=== PATIENT | female | born 1995 | race Caucasian/White ===

== ENCOUNTER 2017-07-30 23:14 | Emergency (ER) | payer SELFPAY | END 2017-07-31 03:51 | disposition home or self-care (01) | PROVIDERS: Emergency Provider Emergency Medicine; Visit Provider Emergency Medicine | DX: N93.0 Postcoital and contact bleeding (principal); R82.71 Bacteriuria; F17.210 Nicotine dependence, cigarettes, uncomplicated | CPT/HCPCS: 81001; 81025; 87077; 87086; 87210; 87220; 99283 ==

== ENCOUNTER → 2017-11-26 17:26 | Outpatient (REF) | payer SELFPAY ==
[2017-12-02 06:14] LABS: Neisseria gonorrhoeae, NAA Negative (Negative)
== END ==
LOC: LAB 17:26
PROVIDERS: Visit Provider Obstetrics & Gynecology
DX: Z01.419 Encounter for gynecological examination (general) (routine) without abnormal findings (principal)
CPT/HCPCS: 87491; 87591

== ENCOUNTER 2020-06-22 08:21 | Emergency (ER) | payer MEDICAID, SELFPAY ==
[2020-06-22 08:21] VITALS: BP 110/74; PULSE 88; RESP 16; TEMP 36.6; O2SAT 98; BMI 20.3
--- NOTE | 2020-06-22 08:40 | HMH.EDANIB ---
ED Disposition Clinical Impression: Cat bite Qualifiers: Encounter type: initial encounter Qualified Code(s): W55.01XA - Bitten by cat, initial encounter Disposition: Home, Self-Care Condition on Discharge: Good Instructions: Animal Bites Prescriptions: Amoxicillin/Potassium Clav [Augmentin 875-125 Tablet] 1 tab PO Q12H 10 Days #20 tab Prescription Printed Referrals: PCP,No [Non-Staff] - - Critical Care Critical Care Time: No Attestation: On , the high probability of a clinically significant, sudden or life threatening deterioration of the following system(s) required my full and direct attention, intervention and personal management. The time I documented below is in addition to time spent performing reported procedures but includes the following listed in this critical care notation. Medical Decision Making - Marcus Inquiry Pt receiving controlled substance: No Orders (Tests/Meds): ED MEDICATIONS Discontinued Medications Generic Name Dose Route Start Last Admin Trade Name Freq PRN Reason Stop Dose Admin Ibuprofen 600 mg 06/22/20 08:38 06/22/20 08:49 Ibuprofen 600 Mg Tablet PO 06/22/20 08:39 600 mg ONCE ONE Administration Tetanus/Reduced Diphtheria/Acell Pertussis 0.5 ml 06/22/20 08:38 06/22/20 08:53 Tet/Diphth/Pert-Adult 0.5ml Syringe IM 06/22/20 08:39 0.5 ml .ONCE ONE Administration ORDERS Category Date Time Status Hand XR right minimum 3 views [XR hand RT min 3V] Stat Exams 06/22/20 08:43 Ordered - Radiology Data #1 Image(s): Hand Image Reviewed: Yes I reviewed the patient's radiology image No foreign body identified in the thenar eminence and no other abnormalities. Medical Decision Narrative: 24-year-old female with a cat bite to the right arm and hand. These are her pets and they were two cats that were fighting. Patient has 1 bite over the thenar eminence and several scratches over the volar surface of the wrist and forearm. Tetanus updated x-ray ordered for foreign body and Augmentin given for prophylaxis. Patient's wounds were copiously irrigated with chlorhexidine. X-ray demonstrated no evidence of foreign body the patient was discharged home in good condition with appropriate return precautions. Animal Bite HPI - General Chief Complaint: Animal Bite Stated Complaint: ao @ 0815 lac to R hand Time Seen by Provider: 06/22/20 08:25 Mode of Arrival: Ambulatory Source of Information: Patient Limitations: No Limitations - History of Present Illness HPI narrative: 24-year-old female who presents within minutes after breaking up a fight between her cats with one of the cats attacking her arm with multiple bites and scratches over the hand and forearm. She is anxious and states that the pain is 4 out of 10 at this time. Denies numbness or weakness to the hand has some pain with opposition of the thumb. No shooting pain and no other trauma. MD complaint: animal bite Onset (ago): minute(s) Animal: cat Description of animal: household pet Mechanism: bite, scratch Location: other Right: forearm, hand Pain description: sharp, burning Severity scale (1-10): 4 Context: animals fighting Associated symptoms: none - Related Data Patient tetanus UTD: No (ordered) Previous Rx's Medication Instructions Recorded Amoxicillin/Potassium Clav 1 tab PO Q12H 10 Days #20 tab 06/22/20 [Augmentin 875-125 Tablet] Allergies Allergy/AdvReac Type Severity Reaction Status Date / Time No Known Allergies Allergy Verified 03/14/19 11:06 [facility] History - Hepatitis A Screen Attestation statement:: This patient has been screened for Hepatitis A risk factors. 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
--- NOTE | 2020-06-22 08:43 | XR_ITS ---
PROCEDURE: XR HAND RT MIN 3V CLINICAL INDICATION: Cat bite right thumb COMPARISON: No exams were available for comparison FINDINGS: No fracture or dislocation. No lytic or blastic change. There is normal mineralization. The joint spaces are well-preserved. No significant degenerative/arthritic changes. No erosive changes evident. Other findings:There may be mild soft tissue swelling between the 1st and 2nd metacarpals but there are no foreign bodies. There is no air within the soft tissues. IMPRESSION: Possible mild soft tissue swelling otherwise negative right hand Dictated by: Dr. Charles Santiago MD 06/22/2020 09:48 Dr. Charles Santiago MD in [place] 06/22/2020 09:48
--- NOTE | 2020-06-22 09:40 | PC.NURSE ---
WOUND CARE TO RT HAND POLYSPORIN APPLIED DSD APPLIED. INFORMATION FAXED TO HEALTH DEPT
[2020-06-22 09:43] VITALS: BP 115/74; PULSE 78; RESP 16; TEMP 36.6; O2SAT 98
== END 2020-06-22 09:46 | disposition home or self-care (01) ==
PROVIDERS: Emergency Provider Student in an Organized Health Care Education/Training Program; PCP Emergency Medicine
DX: S61.431A Puncture wound without foreign body of right hand, initial encounter (principal); W55.01XA Bitten by cat, initial encounter; Z23 Encounter for immunization
CPT/HCPCS: 73130; 90471; 90715; 99282

== ENCOUNTER 2020-08-06 00:53 | Observation (INO) | payer MEDICAID, SELFPAY ==
[2020-08-06] VITALS (16 sets, daily range): BP systolic 86–119; BP diastolic 43–73; PULSE 60–87; RESP 12–20; TEMP 36.3–36.9; O2SAT 95–100; BMI 20.7
--- NOTE | 2020-08-06 01:01 | CT_ITS ---
PROCEDURE: CT ABDOMEN PELVIS W CON CLINICAL INDICATION: n/v Generalized abdominal pain with nausea and vomiting COMPARISON: CT ABDPELWO CT abdomen pelvis wo con from 09/07/2018 TECHNIQUE: IV Contrast: 75ML Isovue 370 Oral Contrast None Axial images obtained with sagittal and coronal reformats. All CT scans at the facility use one or more dose reduction, viz: automated exposure control, ma/kV adjustment per patient size (including targeted exams where dose is matched to indication, i.e. head), or iterative reconstruction technique. FINDINGS: LOWER THORAX: No acute finding ABDOMEN & PELVIS: Periportal edema noted within the liver. The spleen, adrenal glands, pancreas, and kidneys have an unremarkable appearance. The appendix is not clearly delineated. There are fluid-filled loops of small bowel with a few air-fluid levels and some mild small bowel wall thickening in the mid and lower abdomen which may be related to enteritis. There is also some thickening of the ascending colon. No evidence free air. Multiple unopacified bowel loops in the abdomen or pelvis which could obscure or mimic pathology. If symptoms persist, consider repeat exam with IV and oral contrast. There is some minimal haziness of the pelvic fat nonspecific. No acute bony findings. IMPRESSION: Findings compatible with enterocolitis. Multiple unopacified bowel loops in the abdomen or pelvis which could obscure or mimic pathology. If symptoms persist, consider repeat exam with IV and oral contrast.. Dictated by: Robles Quigley MD 08/06/2020 06:11 Robles Quigley MD in [facility] 08/06/2020 06:11
--- NOTE | 2020-08-06 01:25 | HMH.EDNVD ---
ED Disposition Clinical Impression: Enterocolitis Disposition: Admitted as Observation Condition on Discharge: Fair Referrals: Adithya Pa MD [Primary Care Provider] - - Critical Care Critical Care Time: No Attestation: On 08/06/20, the high probability of a clinically significant, sudden or life threatening deterioration of the following system(s) required my full and direct attention, intervention and personal management. The time I documented below is in addition to time spent performing reported procedures but includes the following listed in this critical care notation. Medical Decision Making - Medical Records Medical records reviewed: Yes: I reviewed the patient's medical records. - Marcus Inquiry Pt receiving controlled substance: No Vital Signs: 08/06/20 01:11 Temperature 97.4 F L Temperature Source Temporal Artery Scan Respiratory Rate 15 Blood Pressure [Right Arm] 105/45 L Blood Pressure Mean [Right Arm] 65 Blood Pressure Source [Right Arm] Automatic Cuff Blood Pressure Position [Right Arm] Supine 02 Sat by Pulse Oximetry 100 Oxygen Delivery Method Room Air - Lab Data Lab results reviewed: Yes: I reviewed the patient's lab results. Lab Results 08/06/20 01:20: WBC 20.3 H*, RBC 4.81, Hgb 14.5, Hct 43.9, MCV 91.4, MCH 30.2, MCHC 33.1, RDW 13.6, Plt Count 157, MPV 9.1, Neut % (Auto) 84.6 H, Lymph % (Auto) 9.8 L, [place] % (Auto) 4.4, Eos % (Auto) 0.9, Baso % (Auto) 0.2, Neut # (Auto) 17.2 H, Lymph # (Auto) 2.0, [place] # (Auto) 0.9, Eos # (Auto) 0.2, Baso # (Auto) 0.0, Total Counted 100, Neutrophils % (Manual) 86 H, Band Neutrophils % 7.0, Lymphocytes % (Manual) 6 L, Monocytes % (Manual) 1 L, Platelet Estimate Normal, RBC Morphology Normal 08/06/20 01:20: Sodium 138, Potassium 3.5, Chloride 105, Carbon Dioxide 17 L, Anion Gap 19.5 H, BUN 13, Creatinine 0.80, Estimated Creat Clear 99, Estimated GFR 90, Est GFR ( Amer) 109, Glucose 192 H, Calcium 10.2, Total Bilirubin 0.8, Direct Bilirubin 0.0, Conjugated Bilirubin 0.0, Indirect Bilirubin 0.8, Unconjugated Bilirubin 0.8, AST 36, ALT 28, Alkaline Phosphatase 96, C-Reactive Protein 1.9, Total Protein 8.0, Albumin 4.9, Amylase 90, Lipase 52 08/06/20 01:20: ESR 16 08/06/20 01:20: Procalcitonin 0.058 08/06/20 01:20: Serum HCG, Qual Negative 08/06/20 01:50: Lactate 3.3 H 08/06/20 02:40: Urine Color Yellow, Urine Appearance Clear, Urine pH 7.0, Ur Specific [place] 1.020, Urine Protein Trace, Urine Glucose (UA) Negative, Urine Ketones 3+, Urine Blood Trace-i, Urine Nitrate Negative, Urine Bilirubin Negative, Urine Urobilinogen 0.2, Ur Leukocyte Esterase Negative, Urine RBC 3-5, Ur Squamous Epith Cells 20-50 Result diagrams: 08/06/20 01:20 08/06/20 01:20 Orders (Tests/Meds): ED MEDICATIONS Generic Name Dose Route Start Last Admin Trade Name Freq PRN Reason Stop Dose Admin Lactated Ringer's 1,000 mls @ 999 mls/hr 08/06/20 01:30 08/06/20 01:36 Lactated Ringer's 1000 Ml Bag IV 08/06/20 02:30 999 mls/hr .Q1H1M FAITH Administration Sodium Chloride 1,000 mls @ 999 mls/hr 08/06/20 04:45 08/06/20 04:33 Sod Chlor 0.9% 1000ml Bag IV 08/06/20 05:45 999 mls/hr .Q1H1M FAITH Administration Metronidazole 500 mg in 100 mls @ 100 mls/hr 08/06/20 04:37 08/06/20 04:40 Flagyl 500mg/100ml Ivpb IV 08/06/20 05:36 100 mls/hr ONCE ONE Administration Protocol Sodium Chloride 8 ml 08/06/20 01:17 Sodium Chloride 0.9% 10ml Vial IV 09/05/20 01:16 NEEDED PRN dilute pepcid Discontinued Medications Generic Name Dose Route Start Last Admin Trade Name Freq PRN Reason Stop Dose Admin Famotidine 20 mg 08/06/20 01:17 08/06/20 01:36 Famotidine 20mg/2ml Vial IV 08/06/20 01:18 20 mg ONCE ONE Administration Iopamidol 75 ml 08/06/20 02:37 08/06/20 02:37 Iopamidol-370 (76%);100ml Bottle IV 08/06/20 02:38 75 ml ONCE ONE Administration Methylprednisolone Sodium Succinate 125 mg 08/06/20 03:06 08/06/20 03
[2020-08-06 01:28] LABS: Basophils % 0.2 % (0.1-2.0); Eosinophils # 0.2 K/mm3 (0.0-0.4); Eosinophils % 0.9 % (0.1-12.0); Hematocrit 43.9 % (37.0-47.0); Hemoglobin 14.5 g/dL (12.2-16.2); Lymphocytes % 9.8 % (10-50); Mean Corpuscular HGB Conc 33.1 g/dL (31.8-35.4); Mean Corpuscular Hemoglobin 30.2 pg (27.0-31.2); Mean Corpuscular Volume 91.4 fl (81-99); Mean Platelet Volume 9.1 fl (7.4-10.4); Monocytes # 0.9 K/mm3 (0.1-1.0); Monocytes % 4.4 % (1.7-9.3); Neutrophils # 17.2 K/mm3 (1.8-7.8); Neutrophils % 84.6 % (37.0-80.0); Platelet Count 157 K/mm3 (142-424); Red Blood Count 4.81 M/mm3 (4.20-5.40); Red Cell Distribution Width 13.6 % (11.5-17.5)
[2020-08-06 01:31] LABS: White Blood Count 20.3 K/mm3 (4.8-10.8)
[2020-08-06 01:33] LABS: MANUAL DIFFERENTIAL MANUAL DIFFERENTIAL (MANUAL DIFF)
[2020-08-06 01:40] LABS: Chloride 105 mmol/L (98-107); Sodium 138 mmol/L (136-145)
[2020-08-06 01:41] LABS: Potassium 3.5 mmoL/L (3.5-5.1)
[2020-08-06 01:43] LABS: Alanine Aminotransferase 28 U/L (12-78); Amylase 90 U/L (30-110); Anion Gap 19.5 mEq/L (5-15); Aspartate Amino Transferase 36 U/L (14-36); Bilirubin,Unconjugated 0.8 mg/dL (0.0-1.1); Blood Urea Nitrogen 13 mg/dl (7-17); Carbon Dioxide 17 mmol/L (22.0-30.0); Creatinine Clearance Estimated 99 mL/min (50-200); Estimated Glomerular Filt Rate 90 ml/min (>60); GFR (African American) 109 ML/MIN (>60)
[2020-08-06 01:44] LABS: Albumin Level 4.9 g/dl (3.5-5.0); Alkaline Phosphatase 96 U/L (38-126); Bilirubin,Indirect 0.8 mg/dL (0.0-0.9); Bilirubin,Total 0.8 mg/dl (0.2-1.3); Calcium 10.2 mg/dl (8.4-10.2); Glucose 192 mg/dl (74-100); Lipase 52 U/L (23-300)
[2020-08-06 01:49] LABS: C-Reactive Protein 1.9 mg/L (0-4)
[2020-08-06 01:57] LABS: HCG Qualitative, Serum Negative (Negative)
[2020-08-06 02:01] LABS: Lymphocytes % 6 % (10-50); Monocytes % 1 % (2-9); Neutrophils % 86 % (42-76); Platelet Estimate Normal; Procalcitonin 0.058 ng/mL (0.0-2.0); RBC Morphology Normal; Total Cells Counted 100
[2020-08-06 02:15] LABS: Erythrocyte Sedimentation Rate 16 mm/hr (0-20)
--- NOTE | 2020-08-06 02:43 | PC.NURSE ---
pt ambulated independently to the bathroom. no pain reported at this time
[2020-08-06 02:47] LABS: Microscopic, Urine URINE MICROSCOPIC (MICROSCOPIC)
[2020-08-06 02:48] LABS: Appearance,Urine CLEAR (Clear); Bilirubin,Urine Negative (Negative); Blood, Urine TRACE-I (Negative); Color,Urine YELLOW (Yellow); Glucose,Urine (UA) Negative (Negative); Ketones,Urine 3+ (Negative); Leukocyte Esterase,Urine Negative (Negative); Nitrate,Urine Negative (Negative); Protein,Urine TRACE (Negative); Urobilinogen,Urine 0.2 EU/dl (0.2)
[2020-08-06 02:54] LABS: Squamous Epithelial Cell,Urine 20-50 #/hpf (0-5)
--- NOTE | 2020-08-06 03:45 | PC.NURSE ---
PT RESTING QUIETLY IN BED. ROUSES EASILY. VERBALIZES UNDERSTANDING OF ADMISSION STATUS AND CONSULT TO GI THIS MORNING. NO COMPLAINTS OR NEEDS OFFERED. VSS. EMV 15. IVF'S CONTINUED.
[2020-08-06 03:57] LABS: Lactic Acid 3.3 mmol/L (0.7-2.1)
[2020-08-06 04:39] LABS: Reflex Lactic Add Lactic Reflex
--- NOTE | 2020-08-06 04:45 | PC.NURSE ---
PT REMAINS RESTING QUIETLY. NO ACUTE DISTRESS NOTED. NO NEEDS VOICED. TURNS AND REPOSITIONS INDEPENDENTLY.
--- NOTE | 2020-08-06 05:45 | PC.NURSE ---
pt up to bathroom, ambulating independently. ivf's infusing, currently watching tv at this time.
[2020-08-06 05:51] LABS: Lactic Acid Follow Up (RFLX 1) 1.1 mmol/L (0.7-2.1)
--- NOTE | 2020-08-06 06:47 | PC.NURSE ---
continues to watch tv at this time. vss. no distress.
[2020-08-06 07:23] LABS: Basophils % 0.1 % (0.1-2.0); Eosinophils % 0.1 % (0.1-12.0); Hematocrit 38.6 % (37.0-47.0); Lymphocytes # 0.5 K/mm3 (0.7-4.5); Lymphocytes % 2.4 % (10-50); Mean Corpuscular HGB Conc 33.2 g/dL (31.8-35.4); Mean Corpuscular Hemoglobin 30.6 pg (27.0-31.2); Mean Corpuscular Volume 92.3 fl (81-99); Mean Platelet Volume 9.2 fl (7.4-10.4); Monocytes # 0.4 K/mm3 (0.1-1.0); Monocytes % 2.3 % (1.7-9.3); Neutrophils # 18.3 K/mm3 (1.8-7.8); Neutrophils % 95.2 % (37.0-80.0); Platelet Count 99 K/mm3 (142-424); Red Blood Count 4.18 M/mm3 (4.20-5.40); Red Cell Distribution Width 13.6 % (11.5-17.5); White Blood Count 19.2 K/mm3 (4.8-10.8)
--- NOTE | 2020-08-06 07:34 | PC.NURSE ---
Report from CYRIL Sweeney. No needs at this time
[2020-08-06 07:39] LABS: Alanine Aminotransferase 13 U/L (12-78); Albumin Level 3.5 g/dl (3.5-5.0); Albumin/Globulin Ratio 1.3 (1.1-1.8); Alkaline Phosphatase 57 U/L (38-126); Anion Gap 8.2 mEq/L (5-15); Aspartate Amino Transferase 24 U/L (14-36); Bilirubin,Total 0.7 mg/dl (0.2-1.3); Blood Urea Nitrogen 8 mg/dl (7-17); Carbon Dioxide 23 mmol/L (22.0-30.0); Chloride 110 mmol/L (98-107); Creatinine Clearance Estimated 113 mL/min (50-200); Estimated Glomerular Filt Rate 105 ml/min (>60); GFR (African American) 127 ML/MIN (>60); Globulin 2.6 g/dL (1.3-3.2); Glucose 111 mg/dl (74-100); Potassium 4.2 mmoL/L (3.5-5.1); Sodium 137 mmol/L (136-145); Total Protein,Serum 6.1 g/dl (6.3-8.2)
[2020-08-06 07:54] LABS: Hemoglobin 12.9 g/dL (12.2-16.2)
--- NOTE | 2020-08-06 08:11 | PC.NURSE ---
Pt sleeping, no complaints at this time
--- NOTE | 2020-08-06 10:03 | PC.NURSE ---
Called pre-op and spoke with Bret. Asked her to have call Dr. Pa in the ED for a consult. She advised she would let him know.
--- NOTE | 2020-08-06 10:10 | PC.NURSE ---
speaking with Dr. Guerrero
--- NOTE | 2020-08-06 10:12 | PC.NURSE ---
Dr. Guerrero advises he is going to scope the patient and requests bottle of mag citrate at this time.
--- NOTE | 2020-08-06 10:47 | PC.NURSE ---
Scope packet completed. Pre-op checklist completed. Pt clothing and jewelry removed.
[2020-08-06 11:20] LABS: Coronavirus 19 IgG Antibody Negative (Negative); Coronavirus 19 IgM Antibody Negative (Negative)
--- NOTE | 2020-08-06 11:27 | PC.NURSE ---
Called report to Sulam, vivien on the floor
--- NOTE | 2020-08-06 13:36 | PC.NURSE ---
Pt sitting in bed watching TV. No needs at this time
--- NOTE | 2020-08-06 14:11 | HMH.PHAVTE ---
[facility] Pharmacy VTE Monitoring - Patient Demographics Admission date: 08/06/20 Report Date: 08/06/20 Time: 14:11 Allergies/Adverse Reactions: Patient Allergies No Known Allergies Allergy (Verified 03/14/19 11:06) Height: 1.65 m Weight: 56.699 kg Patient Problems: Current Active Problems Enterocolitis (Acute) - VTE Risk Labs: VTE Related Lab Results Hgb 12.9 g/dL (12.2-16.2) D 08/06/20 07:09 Hct 38.6 % (37.0-47.0) 08/06/20 07:09 Plt Count 99 K/mm3 (142-424) L D 08/06/20 07:09 BUN 8 mg/dl (7-17) D 08/06/20 07:09 Creatinine 0.70 mg/dl (0.52-1.04) 08/06/20 07:09 Estimated Creat Clear 113 mL/min (50-200) 08/06/20 07:09 Clinical Trial Participant: No - Prophylaxis VTE Prophylaxis Ordered?: Yes Types of VTE Prophylaxis: TEDS Knee High
--- NOTE | 2020-08-06 15:20 | HMH.ANESCL ---
[facility] Anesthesia Checklist - Patient Identification Patient Identification: Arm Band - Structural Data Admitted From: Inpatient Planned Operative Procedure/s: colonoscopy Consent for Planned Operative Procedure(s) Verified: Yes Verified Documents: Surgical Consent, History and Physical - NPO Status Verified Time NPO: 00:00 - Additional verifications Anesthesia Reactions: No - Airway Assessment C-Spine Mobility Assessed: Yes (mp2) TMJ Mobility Assessed: Yes Dentition: Good Dentition - Neurological Assessment Level of Consciousness: Awake, Alert - Anesthesia Plan Anesthesia Risk discussed: Yes Anesthesia Plan: Verified ASA Class: II Anesthesia Type: MAC [facility] History I have reviewed the patient's past medical history: Yes *Have you ever received a pneumonia vaccine?: No *Have you received a flu vaccine this season?: No Anesthesia experience/problems:: nac Amputation: No Fractures: No - *Social History Last grade of school completed: High school graduate Smoking Status: Current every day smoker # Packs/Day (cigarettes): 1 Alcohol Intake: never Substance Use Type: denies use *Occupational Status:: employed Housing: house Household Members: spouse *Travel in the last 8 weeks: None Family Hx:: Coronary Artery Disease, Diabetes 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
--- NOTE | 2020-08-06 16:00 | HMH.HPDC ---
General - General Admission date:: 08/06/20 Discharge date: 08/06/20 *Admission Date: 08/06/20 *Chief complaint: abd pain *History of present illness: 24 yr old female pt presents with complaints low abd pain that came on suddenly while at work presented to ed. Pt states she went to work this evening, ate normal foods, and became acutely nauseated, feels like her low belly is being stabbed and denies radiation of the pain anywhere else. Patient admitted for GI consult. [facility] History I have reviewed the patient's past medical history: Yes *Have you ever received a pneumonia vaccine?: No *Have you received a flu vaccine this season?: No Anesthesia experience/problems:: nac Amputation: No Fractures: No - *Social History Last grade of school completed: High school graduate Smoking Status: Current every day smoker # Packs/Day (cigarettes): 1 Alcohol Intake: never Substance Use Type: denies use *Occupational Status:: employed Housing: house Household Members: spouse *Travel in the last 8 weeks: None Family Hx:: Coronary Artery Disease, Diabetes 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 History Review of Systems - Review of Systems Review of systems:: pertinent systems reviewed and negative unless documented below - Constitutional Denies body ache(s), Denies fever(s), Denies increased appetite - Eyes Denies blurry vision - ENT Denies bleeding gums, Denies pain with swallowing - *Cardiovascular Denies chest pain at rest - *Respiratory Denies chest congestion - *Gastrointestinal Reports abdominal pain, Reports cramping - *Genitourinary Denies painful urination - *Musculoskeletal Denies joint pain - Integumentary/Breasts Denies rash - *Neurologic Denies abnormal movements, Denies headache(s), Denies seizure-like activity - Psychiatric Denies lack of enjoyment - Endocrine Denies flushing - Hematologic/Lymphatic Denies easy bruising - Allergic/Immunologic Denies GI upset with certain foods Exam Vital signs and Labs for Last 24 Hours: Temp Pulse Resp BP Pulse Ox 97.7 F 60 16 95/43 L 95 08/06/20 15:50 08/06/20 15:50 08/06/20 15:50 08/06/20 15:50 08/06/20 15:50 Laboratory Results - last 24 hr 08/06/20 01:20: WBC 20.3 H*, RBC 4.81, Hgb 14.5, Hct 43.9, MCV 91.4, MCH 30.2, MCHC 33.1, RDW 13.6, Plt Count 157, MPV 9.1, Neut % (Auto) 84.6 H, Lymph % (Auto) 9.8 L, [place] % (Auto) 4.4, Eos % (Auto) 0.9, Baso % (Auto) 0.2, Neut # (Auto) 17.2 H, Lymph # (Auto) 2.0, [place] # (Auto) 0.9, Eos # (Auto) 0.2, Baso # (Auto) 0.0, Total Counted 100, Neutrophils % (Manual) 86 H, Band Neutrophils % 7.0, Lymphocytes % (Manual) 6 L, Monocytes % (Manual) 1 L, Platelet Estimate Normal, RBC Morphology Normal 08/06/20 01:20: Sodium 138, Potassium 3.5, Chloride 105, Carbon Dioxide 17 L, Anion Gap 19.5 H, BUN 13, Creatinine 0.80, Estimated Creat Clear 99, Estimated GFR 90, Est GFR ( Amer) 109, Glucose 192 H, Calcium 10.2, Total Bilirubin 0.8, Direct Bilirubin 0.0, Conjugated Bilirubin 0.0, Indirect Bilirubin 0.8, Unconjugated Bilirubin 0.8, AST 36, ALT 28, Alkaline Phosphatase 96, C-Reactive Protein 1.9, Total Protein 8.0, Albumin 4.9, Amylase 90, Lipase 52 08/06/20 01:20: ESR 16 08/06/20 01:20: Procalcitonin 0.058 08/06/20 01:20: Serum HCG, Qual Negative 08/06/20 01:50: Lactate 3.3 H 08/06/20 02:40: Urine Color Yellow, Urine Appearance Clear, Urine pH 7.0, Ur Specific [place] 1.020, Urine Protein Trace, Urine Glucose (UA) Negative, Urine Ketones 3+, Urine Blood Trace-i, Urine Nitrate Negative, Urine Bilirubin Negative, Urine Urobilinogen 0.2, Ur Leukocyte Esterase Negative, Urine RBC 3-5, Ur Squamous Epith Cells 20-50 08/06/20 05:30: Lactate 1.1 08/06/20 07:09: WBC 19.2 H, RBC 4.18 L, Hgb 12.9 D, Hct 38.6, MCV 92.3, MCH 30.6, MCHC 33.2, RDW 13.6, Plt Count 99 L D, MPV 9.2, Neut % (Auto) 95.2 H, Lymph % (Auto) 2.4 L, [place] % (Auto) 2.3, Eos % (Auto) 0.1, Baso % (Auto) 0.1, Neut # (Auto) 18.3 H, Lymph # (Auto) 0.5 L, [place] #
--- NOTE | 2020-08-06 16:25 | HMH.PROC ---
[facility] Procedure Note Procedure Note:: Colonoscopy Procedure Report: Colonoscopy with cold biopsies Endoscopist: Carloz Guerrero II, MD Referring physician: Adithya Pa MD Date of Procedure: August 06, 2020 Equipment: Olympus 180 variable stiffness pediatric colonoscope Sedation: MAC sedation Indication: Ms. Perez is a 24-year-old female who developed more significant abdominal pain yesterday at work (3[employer]). This did progressively worsen and she developed some nausea. She does have some mild chronic constipation. Yesterday, she did not have any associated diarrhea, rectal bleeding or mucus. She has had no recent weight loss. She reports no family history of colitis, Crohn's disease or colon cancer. The patient reports not eating anything that had an unusual taste. She has had no fever or vomiting. She did go to the emergency department and a CAT scan showed fluid-filled loops of small bowel with a few air-fluid levels and some mild small bowel wall thickening in the mid and lower abdomen. The patient's lab work did initially show leukocytosis and her WBC count today was 19.2. She had normal hemoglobin 12.9 and hematocrit 38.6 after hydration. Procedure: Prior to the procedure, a history and physical exam was performed, and patient's medications and allergies were reviewed. The risks, benefits and alternatives of the sedation and procedure were discussed with the patient. All questions were answered and informed consent was obtained. The patient was brought to the procedure room. Patient identification and proposed procedure were verified by the physician and the nurse. The patient was placed in a left lateral decubitus position and the scope was passed under direct vision. Throughout the procedure, the patient's blood pressure, pulse, and oxygen saturations were monitored continuously. The colonoscopy was accomplished without difficulty. The patient tolerated the procedure well. Findings: On digital rectal examination there was normal rectal tone. There were no external hemorrhoids. The colonoscope was introduced through the anal canal to the rectum and advanced to the cecum. The ileocecal valve and appendiceal orifice were identified. The scope was advanced a short distance into the ileum which appeared grossly normal. The scope was then withdrawn into the colon. The cecum, ascending, transverse, descending, sigmoid and rectum were grossly normal. There was very mild haustral edema of the sigmoid colon so this was biopsied to rule out any self-limited colitis. There were no other mucosal abnormalities identified. Upon retroflexion within the rectum there were small grade 1 internal hemorrhoids.the preparation was excellent throughout. Impression: 1. Normal colonoscopy with intubation of the terminal ileum Plan: I do feel that the patient likely did have a gastroenteritis (more so than enterocolitis). If she does develop diarrhea I would consider doing PCR gastrointestinal panel to rule out any microbial pathogens. Presently, I would recommend advancing towards low residue diet and dicyclomine as needed. I would also consider probiotic (align).
== END 2020-08-06 18:15 | disposition home or self-care (01) ==
LOC: ER 04:43 → 2ND 04:47
PROVIDERS: Internal Medicine Gastroenterology; Admitting Provider Emergency Medicine; Emergency Provider Emergency Medicine; PCP Emergency Medicine; Visit Provider Emergency Medicine
PROC: 0DJD8ZZ Inspection of Lower Intestinal Tract, Via Natural or Artificial Opening Endoscopic (ICD-10-PCS; CPT 45378; principal; 2020-08-06 15:30)
DX: K52.9 Noninfective gastroenteritis and colitis, unspecified (principal); Z72.0 Tobacco use; K59.00 Constipation, unspecified
CPT/HCPCS: 45378; 36415; 74177; 80048; 80053; 80076; 81001; 82150; 83605; 83690; 84145; 84703; 85007; 85025; 85651; 86140; 86328; 88305; 96365; 96366; 96367; 96375; 99284; G0378; J2405; Q9967

== ENCOUNTER 2022-03-03 17:14 | Emergency (ER) | payer MEDICAID, SELFPAY ==
[2022-03-03 17:30] VITALS: BP 106/74; PULSE 82; RESP 17; TEMP 36.9; O2SAT 98; BMI 18.6
--- NOTE | 2022-03-03 17:35 | XR_ITS ---
PROCEDURE INFORMATION: Exam: XR Right Hand Exam date and time: 03/03/2022 5:35 PM Age: 26 years old Clinical indication: Injury or trauma; Other: Punched a wall; Blunt trauma (contusions or hematomas); Hand; Right TECHNIQUE: Imaging protocol: Radiologic exam of the Right hand. Views: 3 or more views. COMPARISON: CR XR HAND RT MIN 3V 06/22/2020 9:02 AM FINDINGS: Bones/joints: Cortical irregularity of the base of the 5th metacarpal bone, concerning for fracture, likely involving articular cortex at the 5th carpal-metacarpal joint, and there is cortical offset along the lateral/radial aspect of the proximal metaphyseal cortex. However, this is only well seen on AP image 1. Bones otherwise appear intact and normally aligned with normal mineralization.There are no lytic skeletal lesions seen. No significant arthritic deformities. Soft tissues: Medial/ulnar soft tissue swelling in the hand.No radiopaque foreign bodies. No pathologic soft tissue calcification. IMPRESSION: Suspect acute intra-articular fracture of the base of the 5th metacarpal bone.
--- NOTE | 2022-03-03 17:54 | HMH.EDUTC ---
[facility] Clinical Impression: Metacarpal bone fracture Qualifiers: Encounter type: initial encounter Metacarpal bone: fifth Fracture type: closed Metacarpal location: base Fracture alignment: nondisplaced Laterality: right Qualified Code(s): S62.346A - Nondisplaced fracture of base of fifth metacarpal bone, right hand, initial encounter for closed fracture Disposition: Home, Self-Care Condition on Discharge: Good Instructions: Contusion, DI for Contusion Additional Instructions: *RICE, Rest the extremity, Ice 15-20 minutes 3-4 times daily, Compress- wear the malachi wrap as discussed as much as possible to help reduce swelling and pain, Elevate the extremity when at rest *Malachi wrap is for support and help control swelling, use it except in the shower. Be sure that is not to tight but not to loose either *Elevate when resting *Ibuprofen every 6-8 hours as needed for pain an inflammation. If need something more can take Tylenol in between doses of Ibuprofen to help Immediately follow up with your family doctor for new or worsening of symptoms, or no noticeable improvement over the next 3-5 days You may call back later this evening for the official reading of your xray Make sure to call Orthopedics/[facility] for appointment Straight To ER if any life threatening symptoms Referrals: Adithya Pa MD [Primary Care Provider] - As needed Don Palomo MD [Referring] - (call tomorrow for appointment) Time of Disposition: 18:24 Medical Decision Making - Marcus Inquiry Pt receiving controlled substance: No Marcus was queried for this patient: No Vital Signs: 03/03/22 17:30 03/03/22 18:11 Temperature 98.5 F 98.5 F Temperature Source Oral Pulse Rate 82 Pulse Rate [Left Brachial] 82 Respiratory Rate 17 17 Blood Pressure 106/74 L Blood Pressure [Left Arm] 106/74 L Blood Pressure Mean [Left Arm] 84 Blood Pressure Source [Left Arm] Automatic Cuff Blood Pressure Position [Left Arm] Sitting 02 Sat by Pulse Oximetry 98 Oxygen Delivery Method Room Air - Radiology Data #1 Image(s): Hand Image Reviewed: Yes I have reviewed radiologist's interpretation IMPRESSION: Suspect acute intra-articular fracture of the base of the 5th metacarpal bone. - Physician Consults Physician Consulted: Dr Chery Time: 18:49 Reason -: Orthopedic Eval/Care Comment/Response: Spoke with Dr Chery about xray and finding and he advise to place in Ulnar gutter splint and follow up with [facility] may call tomorrow for appointment [facility] - General Stated complaint: AO [id number]@[id number] injured R hand Time Seen by Provider: 03/03/22 17:54 Mode of Arrival: Ambulatory Source of Information: Patient Limitations: No Limitations Description of Symptoms (Recalled from Triage Doc. by RN): PATIENT C/O INJURY TO RIGHT HAND AFTER PUNCHING A WALL ON THURSDAY HEENT Symptoms (Recalled from RN notes): No Resp Symptoms (Recalled from RN notes): No Skin Symptoms (Recalled from RN notes): No MS Symptoms (Recalled from RN notes): Yes Functional Status (Recalled from RN notes): WNL - History of Present Illness Provider Complaint: Patient states that she got mad on Thursday and punched a wall State that she has been having pain and bruising in her hand ever since States that she is able to move and bend her fingers but the bruising has continued to get worse so she came in to get it checked - Related Data Home Medications Medication Instructions Recorded Confirmed No Known Home Medications 08/06/20 08/06/20 Previous Rx's Medication Instructions Recorded Dicyclomine HCl [Bentyl 10mg 10 mg PO TID #10 cap 08/06/20 capsule] metroNIDAZOLE [Flagyl 500mg 500 mg PO TID 7 Days #21 tab 08/06/20 Tablet] Allergies Allergy/AdvReac Type Severity Reaction Status Date / Time No Known Allergies Allergy Verified 03/14/19 11:06 - Worker's Comp Is this a Worker's Comp case?: No [facility] History - Hepatitis A Screen Attestatio
[2022-03-03 18:11] VITALS: BP 106/74; PULSE 82; RESP 17; TEMP 36.9; O2SAT 98
== END 2022-03-03 18:29 | disposition home or self-care (01) ==
PROVIDERS: Emergency Provider Nurse Practitioner; PCP Emergency Medicine
DX: S62.346A Nondisplaced fracture of base of fifth metacarpal bone, right hand, initial encounter for closed fracture (principal); W22.8XXA Striking against or struck by other objects, initial encounter
CPT/HCPCS: 29126; 73130; 99212; G0463

== ENCOUNTER → 2022-04-02 14:42 | Outpatient (CLI) | payer MEDICAID, SELFPAY ==
--- NOTE | 2022-04-02 14:45 | XR_ITS ---
FINAL REPORT CLINICAL HISTORY: hand pain COMPARISON: March 03, 2022 FINDINGS: LEFT HAND 3 views of the left hand were obtained. There has been interval improvement in the appearance of the proximal 5th metacarpal likely representing interval healing of a fracture. There is no new bony abnormality. Visualized joint spaces are normally aligned. Soft tissues are unremarkable. IMPRESSION: Findings likely represent interval healing of a fracture of the proximal 5th metacarpal. Reviewed, Interpreted and Dictated by Damien Grant III, MD Transcribed by Rama Guerrero Authenticated and [facility]
[2022-04-02 16:39] LABS: INR 1.01 (0.9-1.1); Prothrombin Time 11.4 seconds (10.1-12.5)
[2022-04-02 17:22] LABS: Basophils # 0.1 K/mm3 (0-0.2); Eosinophils # 0.2 K/mm3 (0.0-0.4); Eosinophils % 1.7 % (0.1-12.0); Hematocrit 48.1 % (37.0-47.0); Hemoglobin 14.9 g/dL (12.2-16.2); Lymphocytes # 2.6 K/mm3 (0.7-4.5); Lymphocytes % 25.6 % (10-50); Mean Corpuscular HGB Conc 31.1 g/dL (31.8-35.4); Mean Corpuscular Hemoglobin 30.2 pg (27.0-31.2); Mean Corpuscular Volume 97.4 fl (81-99); Mean Platelet Volume 10.3 fl (7.4-10.4); Monocytes # 0.7 K/mm3 (0.1-1.0); Monocytes % 6.7 % (1.7-9.3); Neutrophils # 6.6 K/mm3 (1.8-7.8); Platelet Count 196 K/mm3 (142-424); Red Blood Count 4.94 M/mm3 (4.20-5.40); Red Cell Distribution Width 13.3 % (11.5-17.5); White Blood Count 10.2 K/mm3 (4.8-10.8)
[2022-04-02 17:44] LABS: Alanine Aminotransferase 15 U/L (12-78); Albumin Level 4.4 g/dl (3.5-5.0); Albumin/Globulin Ratio 1.5 (1.1-1.8); Alkaline Phosphatase 90 U/L (38-126); Anion Gap 10.2 mEq/L (5-15); Aspartate Amino Transferase 31 U/L (14-36); Blood Urea Nitrogen 10 mg/dl (7-17); Calcium 9.7 mg/dl (8.4-10.2); Carbon Dioxide 30 mmol/L (22.0-30.0); Chloride 106 mmol/L (98-107); Estimated Glomerular Filt Rate 77 ml/min (>60); GFR (African American) 93 ML/MIN (>60); Glucose 85 mg/dl (74-100); Potassium 5.2 mmoL/L (3.5-5.1); Sodium 141 mmol/L (136-145); Total Protein,Serum 7.4 g/dl (6.3-8.2)
[2022-04-02 18:15] LABS: Bilirubin,Total < 0.1 mg/dl (0.2-1.3)
[2022-04-04 09:25] LABS: HIV Screen 4th Generation wRfx Non Reactive (Non Reactive); Hepatitis B Surface Antigen Negative (Negative); Hepatitis C Antibody <0.1 s/co ratio (0.0-0.9)
[2022-04-04 12:22] LABS: Hep A Ab, Total Positive (Negative); Hep B Core Ab, Total Negative (Negative); Hep B Surface Ab, Qual Non Reactive (.)
[2022-04-08 00:12] LABS: ALT (SGPT) P5P 15 IU/L (0-40); Alpha 2-Macroglobulins, Qn 274 mg/dL (110-276); Apolipoprotein A-1 170 mg/dL (116-209); Bilirubin, Total 0.2 mg/dL (0.0-1.2); Fibrosis Score 0.05 (0.00-0.21); GGT 11 IU/L (0-60); Haptoglobin 109 mg/dL (33-278); Necroinflammat Activity Grade A0-No activity (.); Necroinflammat Activity Score 0.03 (0.00-0.17)
== END ==
PROVIDERS: PCP Emergency Medicine; Visit Provider Emergency Medicine
DX: M79.641 Pain in right hand (principal); K52.9 Noninfective gastroenteritis and colitis, unspecified; R53.83 Other fatigue; R35.0 Frequency of micturition; Z01.84 Encounter for antibody response examination; Z11.4 Encounter for screening for human immunodeficiency virus [HIV]
CPT/HCPCS: 36415; 73130; 80053; 81596; 85025; 85610; 86703; 86704; 86706; 86708; 87086; 87088; 87186; 87340; 87380; 87522; G0432

== ENCOUNTER → 2022-07-11 11:19 | Outpatient (CLI) | payer MEDICAID, SELFPAY ==
[2022-07-12 11:26] LABS: HIV Screen 4th Generation wRfx Non Reactive (Non Reactive); Rapid Plasma Reagin Ab Titer Non Reactive (NonRea<1:1)
[2022-07-19 22:49] LABS: Hep A Ab, IgM NEGATIVE; Hepatitis B Core Antibody IgM NEGATIVE; Hepatitis B Surface Antigen NEGATIVE; Hepatitis C Antibody 0.1
== END ==
PROVIDERS: PCP Emergency Medicine; Visit Provider Obstetrics & Gynecology
DX: Z30.017 Encounter for initial prescription of implantable subdermal contraceptive (principal)
CPT/HCPCS: 36415; 80074; 86592; 86703; G0432

== ENCOUNTER → 2022-08-01 12:32 | Outpatient (CLI) | payer MEDICAID, SELFPAY ==
[2022-08-01 13:48] LABS: Hemoglobin A1C 5.4 % (4.0-6.0)
[2022-08-01 14:39] LABS: Basophils # 0.1 K/mm3 (0-0.2); Basophils % 0.9 % (0.1-2.0); Eosinophils # 0.2 K/mm3 (0.0-0.4); Eosinophils % 2.4 % (0.1-12.0); Hematocrit 43.4 % (37.0-47.0); Hemoglobin 14.5 g/dL (12.2-16.2); Lymphocytes # 1.7 K/mm3 (0.7-4.5); Lymphocytes % 27.9 % (10-50); Mean Corpuscular HGB Conc 33.4 g/dL (31.8-35.4); Mean Corpuscular Hemoglobin 31.2 pg (27.0-31.2); Mean Corpuscular Volume 93.3 fl (81-99); Mean Platelet Volume 9.7 fl (7.4-10.4); Monocytes # 0.4 K/mm3 (0.1-1.0); Monocytes % 6.5 % (1.7-9.3); Neutrophils # 3.9 K/mm3 (1.8-7.8); Neutrophils % 62.3 % (37.0-80.0); Platelet Count 155 K/mm3 (142-424); Red Blood Count 4.66 M/mm3 (4.20-5.40); Red Cell Distribution Width 13.2 % (11.5-17.5); White Blood Count 6.2 K/mm3 (4.8-10.8)
[2022-08-01 17:36] LABS: Alanine Aminotransferase 24 U/L (12-78); Albumin Level 4.4 g/dl (3.5-5.0); Albumin/Globulin Ratio 1.5 (1.1-1.8); Alkaline Phosphatase 74 U/L (38-126); Aspartate Amino Transferase 34 U/L (14-36); Bilirubin,Total 0.6 mg/dl (0.2-1.3); Blood Urea Nitrogen 18 mg/dl (7-17); Carbon Dioxide 21 mmol/L (22.0-30.0); Chloride 109 mmol/L (98-107); Chol/HDL Ratio 2.5 (1-3.5); Cholesterol 199 mg/dl (140-200); Estimated Glomerular Filt Rate 77 ml/min (>60); GFR (African American) 93 ML/MIN (>60); Globulin 2.9 g/dL (1.3-3.2); Glucose 88 mg/dl (74-100); HDL Cholesterol 80 mg/dl (40-60); Sodium 138 mmol/L (136-145); Total Protein,Serum 7.3 g/dl (6.3-8.2); Triglycerides 95 mg/dl (30-150); VLDL Cholesterol 19 mg/dL (0-40)
[2022-08-01 17:46] LABS: Direct LDL Cholesterol 82.92 mg/dL (100-129)
[2022-08-01 17:53] LABS: T4 (Thyroxine) 8.2 ug/dl (5.53-11.0)
[2022-08-01 18:07] LABS: Thyroid Stimulating Hormone 7.37 uIU/mL (0.465-4.68)
== END ==
PROVIDERS: PCP Emergency Medicine; Visit Provider Nurse Practitioner Family
DX: F31.32 Bipolar disorder, current episode depressed, moderate (principal)
CPT/HCPCS: 36415; 80053; 80061; 83036; 84436; 84443; 85025

== ENCOUNTER 2022-09-22 08:14 | Emergency (ER) | payer MEDICAID, SELFPAY ==
--- NOTE | 2022-09-22 08:23 | EXP.UTC ---
Discharge Plan Disposition Patient Disposition: Home, Self-Care Condition: Good Prescriptions Prescriptions: New azithromycin [Zithromax] 250 mg tablet 250 mg PO UD DOSE PK Qty: 6 0RF Rx Instructions: Take two (2) tablets today, then one (1) tablet days #2 thru #5 xtalkhlayuatind-vdbrftmed-MJ [Bromfed DM] 2-30-10 mg/5 mL Syrup 5 ml PO Q6H PRN (Reason: Cough) Qty: 240 0RF No Action risperidone 1 mg tablet 1 mg PO BID buspirone 5 mg tablet 5 mg PO TID tizanidine [Zanaflex] 4 mg tablet 4 mg PO Q12H PRN (Reason: muscle spasticity) Qty: 30 1RF gabapentin 100 mg capsule 100 mg PO BID Referrals Follow up/Referrals: Adithya Pa MD [Primary Care Provider] - See instructions Activity Restrictions/Add. Instructions Additional Instructions/Restrictions: Drink plenty of fluids. Take tylenol or ibuprofen for pain or fever. Take the medications as directed. Follow up with your regular doctor. GO TO THE ER FOR ANY WORSENING SYMPTOMS Clinical Impressions Clinical Impression: Pharyngitis, Sinusitis Instructions Patient Instructions: DI for Pharyngitis/Tonsillopharyngitis -- Adult, DI for Sinusitis Discharge ED Provider: Nas Whyte [facility] General Stated complaint: cough,drainage,sore throat Time Seen by Provider: 09/22/22 08:23 History of Present Illness Provider Complaint: She states that for the past 2 days she has had a productive cough, sinus congestion and a sore throat. Related Data Home Medications Medication Instructions Recorded Confirmed risperidone 1 mg tablet 1 mg PO BID Anxiety 09/05/22 09/22/22 buspirone 5 mg tablet 5 mg PO TID . 09/17/22 09/22/22 gabapentin 100 mg capsule 100 mg PO BID . 09/22/22 09/22/22 Previous Rx's Medication Instructions Recorded tizanidine 4 mg tablet (Zanaflex) 4 mg PO Q12H PRN muscle spasticity 09/17/22 #30 tabs azithromycin 250 mg tablet 250 mg PO UD DOSE PK #6 tabs 09/22/22 (Zithromax) vvovzmzlirrjard-njrnmxclylhnukw-PL 5 ml PO Q6H PRN Cough #240 mL 09/22/22 2 mg-30 mg-10 mg/5 mL oral syrup (Bromfed DM) Allergies Allergy/AdvReac Type Severity Reaction Status Date / Time No Known Allergies Allergy Verified 09/19/22 10:31 [facility] Disclaimer: The information contained in this section may have been updated after the patient was seen, as this information can be updated by other users. Medical History Anxiety Cat bite Possible exposure to STD Urinary tract infection Vaginitis Vulvar itching Surgical History H/O colonoscopy Social History Smoking Status: Current every day smoker alcohol intake: never substance use type: denies use current occupational status: other Travel in the last 8 weeks: None household members: spouse housing: house caffeine: No ROS Obtained: Yes All systems reviewed & no additional complaints except as documented Constitutional Constitutional: Reports chills and Reports fever(s) Eyes Eyes: Denies eye discharge ENT Ears, Nose, Mouth, and Throat: Reports as per HPI Cardiovascular Cardiovascular: Denies chest pain Respiratory Respiratory: Denies chest congestion and Reports cough Gastrointestinal Gastrointestingal: Reports nausea; Denies abdominal pain, constipation, cramping, diarrhea or vomiting Musculoskeletal Musculoskeletal: Denies arthralgias Integumentary/Breasts Skin/Breast: Denies rash Neurologic Neurologic: Denies paresthesias Physical Exam General General appearance: alert and in no apparent distress Eye Eye exam: Present normal appearance, PERRL and EOMI ENT ENT exam: Present mucous membranes moist and normal external ear exam Expanded ENT Exam External ear exam: Present normal external inspection TM/Canal exam: Bilateral TM: erythema and bulging Nose exam: A
[2022-09-22 08:25] VITALS: BP 106/68; PULSE 102; RESP 20; TEMP 37.2; O2SAT 97; BMI 22.3
[2022-09-22 08:41] LABS: UTC Strep Screen (Rapid) Negative (Negative)
[2022-09-22 09:07] VITALS: BP 106/68; PULSE 102; RESP 20; TEMP 37.2; O2SAT 97
== END 2022-09-22 09:10 | disposition home or self-care (01) ==
PROVIDERS: Emergency Provider Nurse Practitioner Family; PCP Emergency Medicine
DX: J02.9 Acute pharyngitis, unspecified (principal); J32.9 Chronic sinusitis, unspecified
CPT/HCPCS: 87880; 99212; 99213; G0463

== ENCOUNTER 2022-10-22 16:00 | Outpatient (RCR) | payer MEDICAID, SELFPAY ==
--- NOTE | 2022-09-23 18:30 | HMH.PTOPEV ---
PT Outpatient Evaluation Rehab PT Outpatient Evaluation Start: 09/23/22 16:53 Freq: Status: Active Protocol: Document 09/23/22 16:53 MARIO ALBERTO (Rec: 09/23/22 18:29 MARIO ALBERTO [id number]) E-signed By Nannette Freedman, PT Outpatient Therapy Subjective History Subjective History Pt is a 26 y/o female who reports insidious onset of left shoulder blade pain ~5 years ago. Pt also reports chronic bilateral low back with insidious onset with worsening of symptoms a couple months ago. Pt denies having radiographs. Pt reports localized intermittent n/t and constant hypersensitivity of the inferior angle of the left shoulder blade. Pt also reports a sharp stabbing pain of the left shoulder blade. Pt reports symptoms are exacerbated with slouched sitting and improved with upright posture and extending the left arm backwards. Pt denies distal paresthesia. Pt also reports right-sided neck pain and frontal headaches described as throbbing that occur ~2x/week exacerbated by stress. Pt reports the right- sided neck pain will often radiate into the posterior shoulder but she denies paresthesia on the right. In regards to low back pain, pt reports bilateral aching pain that often radiates to the hip but denies distal symptoms or paresthseia. Pt reports LBP is exacerbated by prolonged standing or walking >1 hr. Pt reports LBP improves with rest and lying on her back. Pt reports she takes Gabapentin 2x/day and a muscle relaxer as needed which does helps with low back pain some but has not helped with left shoulder blade pain. Pt denies other
== END 2022-10-22 16:05 | disposition home or self-care (01) ==
LOC: PT 16:00
PROVIDERS: PCP Emergency Medicine; Visit Provider Emergency Medicine
DX: M54.9 Dorsalgia, unspecified (principal); M54.50 Low back pain, unspecified
CPT/HCPCS: 97010; 97014; 97110; 97112; 97140; 97163; 97530; G0283

== ENCOUNTER 2023-05-21 13:10 | Emergency (ER) | payer MEDICAID, SELFPAY ==
[2023-05-21] VITALS (7 sets, daily range): BP systolic 89–124; BP diastolic 64–78; PULSE 52–69; RESP 12–23; TEMP 36.6–36.7; O2SAT 95–99; BMI 22.6
[2023-05-21 14:16] LABS: Microscopic, Urine URINE MICROSCOPIC (MICROSCOPIC)
--- NOTE | 2023-05-21 14:20 | HMH.EDGENADL ---
Discharge Plan Disposition Patient Disposition: Home, Self-Care Prescriptions Prescriptions: New ondansetron 4 mg tablet,disintegrating 4 mg PO Q8H PRN (Reason: nausea and vomiting) 4 Days Qty: 12 0RF No Action aripiprazole 5 mg tablet 5 mg PO DAILY Referrals Follow up/Referrals: Provider,Referral, [Primary Care Provider] - See instructions Activity Restrictions/Add. Instructions Additional Instructions/Restrictions: At this time it was felt you are safe to be discharged home. If new or worsening symptoms please do not hesitate to return the emergency department. If symptoms persist please follow-up with your family doctor as you are able. Please refrain from smoking marijuana. Clinical Impressions Clinical Impression: Abdominal cramping, Nausea & vomiting, Cannabinoid hyperemesis syndrome Instructions Patient Instructions: DI for Acute Abdominal Pain Discharge ED Provider: Eddi Haley General Adult HPI <French Moody MD - Last Filed: 05/21/23 15:35> General Chief complaint: Abdominal Pain Stated complaint: Abdominal Pain Time Seen by Provider: 05/21/23 14:14 Mode of Arrival: Ambulatory Source of Information: Patient Limitations: No Limitations Description of Symptoms (Recalled from ER Triage Doc. by RN): 27 yo F presents to ED with c/o generalized abodminal pain. symptoms began this am. pt reports that she drank last night, had fireball approx 6 shots. pt reports taking phenergan, valium and thc to help with pain at home, but nothing helped. History of Present Illness HPI narrative: Is a 27-year-old female with nausea vomiting abdominal discomfort since early this morning. She denies any diarrhea. No fevers or chills no significant abdominal tenderness and no focality to this she states it is diffuse crampy. She denies any dysuria frequency urgency vaginal bleeding vaginal discharge. Related Data Home Medications Medication Instructions Recorded Confirmed aripiprazole 5 mg tablet 5 mg PO DAILY 03/10/23 03/10/23 Previous Rx's Medication Instructions Recorded ondansetron 4 mg disintegrating 4 mg PO Q8H PRN nausea and 05/21/23 tablet vomiting 4 days #12 tabs Allergies Allergy/AdvReac Type Severity Reaction Status Date / Time No Known Allergies Allergy Verified 03/10/23 10:40 PFSH <French Moody MD - Last Filed: 05/21/23 15:35> PFS Disclaimer: The information contained in this section may have been updated after the patient was seen, as this information can be updated by other users. Medical History Anxiety Cat bite Possible exposure to STD Urinary tract infection Vaginitis Vulvar itching Surgical History H/O colonoscopy Family History (Updated 03/10/23 @ 10:42 by Funmilayo Leroy CMA) Other Coronary artery disease Substance abuse Social History Smoking Status: Current every day smoker alcohol intake: never substance use type: denies use current occupational status: other Travel in the last 8 weeks: None household members: spouse housing: house caffeine: No <French Moody MD - Last Filed: 05/21/23 15:35> ROS Obtained: Yes All systems reviewed & no additional complaints except as documented Physical Exam <French Moody MD - Last Filed: 05/21/23 15:35> General General appearance: alert Respiratory Respiratory exam: Present normal lung sounds bilaterally Cardiovascular Cardiovascular exam: Present regular rate; Absent tachycardia Abdominal Exam Abdominal exam: Present soft; Absent distention, tenderness, guarding, rebound or rigidity Neurological Exam Neurological exam: Present alert and oriented X3 Medical Decision Making <French Moody MD - Last Filed: 05/21/23 15:35> Marcus Inquiry Pt receiving controlled substance: No Vital Signs: 05/21/23
[2023-05-21 14:22] LABS: Bilirubin,Urine Negative (Negative); Blood, Urine TRACE-I (Negative); Glucose,Urine (UA) Negative (Negative); Ketones,Urine 3+ (Negative); Leukocyte Esterase,Urine TRACE (Negative); Nitrate,Urine Negative (Negative); Protein,Urine 2+ (Negative); Specific Gravity, Urine 1.015 (1.005-1.030); Urobilinogen,Urine 0.2 EU/dl (0.2)
[2023-05-21 14:23] LABS: Basophils % 0.1 % (0.1-2.0); Eosinophils % 0.1 % (0.1-12.0); Hematocrit 43.3 % (37.0-47.0); Hemoglobin 15.3 g/dL (12.2-16.2); Lymphocytes # 1.2 K/mm3 (0.7-4.5); Lymphocytes % 6.9 % (10-50); Mean Corpuscular HGB Conc 35.4 g/dL (31.8-35.4); Mean Corpuscular Hemoglobin 31.9 pg (27.0-31.2); Mean Platelet Volume 10.1 fl (7.4-10.4); Monocytes # 0.9 K/mm3 (0.1-1.0); Monocytes % 5.4 % (1.7-9.3); Neutrophils % 87.5 % (37.0-80.0); Platelet Count 173 K/mm3 (142-424); Red Blood Count 4.81 M/mm3 (4.20-5.40); Red Cell Distribution Width 14.8 % (11.5-17.5); White Blood Count 17.1 K/mm3 (4.8-10.8)
[2023-05-21 14:24] LABS: Appearance,Urine Cloudy (Clear); Color,Urine Dark Yellow (Yellow); PH,Urine >= 9.0 (5.0-8.5)
[2023-05-21 14:25] LABS: Alanine Aminotransferase 43 U/L (12-78); Albumin/Globulin Ratio 1.4 (1.1-1.8); Alkaline Phosphatase 99 U/L (38-126); Anion Gap 20.6 mEq/L (5-15); Aspartate Amino Transferase 54 U/L (14-36); Bilirubin,Total 0.7 mg/dl (0.2-1.3); Blood Urea Nitrogen 16 mg/dl (7-17); Calcium 9.8 mg/dl (8.4-10.2); Carbon Dioxide 17 mmol/L (22.0-30.0); Chloride 106 mmol/L (98-107); Creatinine Clearance Estimated 93 mL/min (50-200); Estimated Glomerular Filt Rate 76 ml/min (>60); GFR (African American) 92 ML/MIN (>60); Globulin 3.5 g/dL (1.3-3.2); Glucose 118 mg/dl (74-100); Lipase 34 U/L (23-300); Potassium 3.6 mmoL/L (3.5-5.1); Sodium 140 mmol/L (136-145); Total Protein,Serum 8.5 g/dl (6.3-8.2)
[2023-05-21 15:00] LABS: MANUAL DIFFERENTIAL MANUAL DIFFERENTIAL (MANUAL DIFF)
[2023-05-21 15:04] LABS: WBC,Urine Occasional #/hpf (0-3)
[2023-05-21 15:18] LABS: HCG Qualitative, Serum Negative (Negative)
--- NOTE | 2023-05-21 15:44 | ECG_ITS ---
APPROVED REPORT Exam: Resting ECG HR:73 bpm ECG Measurements Heart Rate 73 AXES OK 138 P 72 QRSd 97 QRS 90 QT 446 T 76 QTc 472 Conclusion SINUS RHYTHM WITH MARKED SINUS ARRHYTHMIA PROLONGED QT INTERVAL ABNORMAL ECG UNCONFIRMED REPORT Electronically signed by : Christiano Brar MD 05/22/2023 14:28:20
[2023-05-21 16:53] LABS: Lymphocytes % 10 % (10-50); Monocytes % 4 % (2-9); Neutrophils % 86 % (42-76); Total Cells Counted 100
[2023-05-21 16:54] LABS: Platelet Estimate Normal; RBC Morphology Normal
--- NOTE | 2023-05-21 16:57 | PC.NURSE ---
pt was sleeping when entered room, pt given water for PO challenge. Pt reports feeling better.
== END 2023-05-21 18:56 | disposition home or self-care (01) ==
PROVIDERS: Student in an Organized Health Care Education/Training Program; Emergency Provider Emergency Medicine
DX: R11.2 Nausea with vomiting, unspecified (principal); F12.188 Cannabis abuse with other cannabis-induced disorder; I45.81 Long QT syndrome; I49.9 Cardiac arrhythmia, unspecified; F17.210 Nicotine dependence, cigarettes, uncomplicated; F41.9 Anxiety disorder, unspecified; R10.819 Abdominal tenderness, unspecified site
CPT/HCPCS: 80053; 81001; 83690; 84703; 85007; 85025; 93005; 96361; 96374; 96375; 99284; J1790; J2405

== ENCOUNTER 2023-07-22 08:39 | Emergency (ER) | payer MEDICAID, SELFPAY ==
[2023-07-22 08:40] VITALS: BP 112/80; PULSE 80; RESP 16; TEMP 36.4; O2SAT 100; BMI 22.3
--- NOTE | 2023-07-22 08:53 | HMH.EDGENADL ---
Discharge Plan Disposition Patient Disposition: Home, Self-Care Prescriptions Prescriptions: New promethazine 12.5 mg suppository 12.5 mg [place] TID PRN (Reason: nausea and vomiting) Qty: 12 0RF Rx Instructions: do not give 3rd daily dose after evening meal or within 4hr before bed ondansetron 4 mg tablet,disintegrating 4 mg PO Q6H PRN (Reason: nausea and vomiting) 5 Days Qty: 20 0RF No Action sulfamethoxazole-trimethoprim [Bactrim DS] 800-160 mg tablet 1 tab PO BID 15 Days Qty: 30 0RF Referrals Follow up/Referrals: Provider,Referral, MD [Primary Care Provider] - See instructions Activity Restrictions/Add. Instructions Additional Instructions/Restrictions: You have been prescribed Zofran as well as Phenergan suppositories to use if you are unable to tolerate any medications by mouth or fluids by mouth. As discussed this is almost certainly cannabinol hyperemesis with your history of prolonged marijuana use and the improvement of your symptoms and hot shower. Your abdominal exam is not consistent with a surgical emergency today. Please return with any worsening symptoms and I strongly recommend that you stop smoking marijuana long-term. Clinical Impressions Clinical Impression: Cannabinoid hyperemesis syndrome, Anxiety Instructions Patient Instructions: DI for Diarrhea and Traveler's Diarrhea -- Adult, DI for Diarrhea and Traveler's Diarrhea -- Child, DI for Nausea -- Adult, DI for Nausea -- Child Discharge ED Provider: French Moody General Adult HPI General Chief complaint: Nausea/Vomiting/Diarrhea Stated complaint: stomach pain, vomitting Time Seen by Provider: 07/22/23 08:44 History of Present Illness HPI narrative: Is a 27-year-old female presenting today with anxiety and nausea and vomiting. She is actively vomiting unable to stop in order to have a conversation with me therefore history is significantly limited. Of note I saw her 2 months ago for similar complaints and she had numerous antiemetic medications requiring droperidol with a diagnosis of cannabinol hyperemesis for chronic cannabinoid use. I stated above additional history is unable to be obtained at the moment. Related Data Previous Rx's Medication Instructions Recorded sulfamethoxazole 800 1 tab PO BID 15 days #30 tabs 05/26/23 mg-trimethoprim 160 mg tablet (Bactrim DS) ondansetron 4 mg disintegrating 4 mg PO Q6H PRN nausea and 07/22/23 tablet vomiting 5 days #20 tabs promethazine 12.5 mg rectal 12.5 mg [place] TID PRN nausea and 07/22/23 suppository vomiting #12 ea Allergies Allergy/AdvReac Type Severity Reaction Status Date / Time No Known Allergies Allergy Verified 05/25/23 13:27 [facility] Disclaimer: The information contained in this section may have been updated after the patient was seen, as this information can be updated by other users. Medical History Anxiety Cat bite Possible exposure to STD Urinary tract infection Vaginitis Vulvar itching Surgical History H/O colonoscopy Family History Other Coronary artery disease Substance abuse Social History Smoking Status: Current every day smoker alcohol intake: never substance use type: denies use current occupational status: other Travel in the last 8 weeks: None household members: spouse housing: house caffeine: No ROS Obtained: Yes All systems reviewed & no additional complaints except as documented Physical Exam General General appearance: anxious and in distress (Actively vomiting) Respiratory Respiratory exam: Present normal lung sounds bilaterally Cardiovascular Cardiovascular exam: Present regular rate; Absent tachycardia Abdominal Exam Abdominal exam: Present soft; Absent distention or
--- NOTE | 2023-07-22 09:05 | ECG_ITS ---
APPROVED REPORT Exam: Resting ECG HR:58 bpm ECG Measurements Heart Rate 58 AXES AR 146 P 72 QRSd 93 QRS 89 QT 443 T 77 QTc 440 Conclusion SINUS BRADYCARDIA WITH SINUS ARRHYTHMIA POSSIBLE RIGHT VENTRICULAR CONDUCTION DELAY [RSR (QR) IN V1/V2] BORDERLINE ECG UNCONFIRMED REPORT Electronically signed by : Christiano Brar MD 07/23/2023 19:48:36
[2023-07-22 09:08] LABS: Microscopic, Urine URINE MICROSCOPIC (MICROSCOPIC)
[2023-07-22 09:09] VITALS: BP 112/80; PULSE 82; O2SAT 100
[2023-07-22 09:12] LABS: Basophils % 0.2 % (0.1-2.0); Eosinophils # 0.1 K/mm3 (0.0-0.4); Eosinophils % 0.4 % (0.1-12.0); Hematocrit 45.1 % (37.0-47.0); Hemoglobin 16.2 g/dL (12.2-16.2); Lymphocytes # 1.5 K/mm3 (0.7-4.5); Mean Corpuscular HGB Conc 35.8 g/dL (31.8-35.4); Mean Corpuscular Hemoglobin 32.2 pg (27.0-31.2); Mean Corpuscular Volume 90.1 fl (81-99); Mean Platelet Volume 8.6 fl (7.4-10.4); Monocytes # 0.8 K/mm3 (0.1-1.0); Monocytes % 5.9 % (1.7-9.3); Neutrophils # 10.4 K/mm3 (1.8-7.8); Neutrophils % 81.5 % (37.0-80.0); Platelet Count 169 K/mm3 (142-424); Red Blood Count 5.01 M/mm3 (4.20-5.40); Red Cell Distribution Width 13.5 % (11.5-17.5); White Blood Count 12.7 K/mm3 (4.8-10.8)
[2023-07-22 09:13] LABS: Appearance,Urine CLEAR (Clear); Blood, Urine TRACE-I (Negative); Color,Urine YELLOW (Yellow); Glucose,Urine (UA) Negative (Negative); Ketones,Urine 2+ (Negative); Leukocyte Esterase,Urine 1+ (Negative); Nitrate,Urine Negative (Negative); PH,Urine 8.5 (5.0-8.5); Protein,Urine 2+ (Negative); Specific Gravity, Urine 1.015 (1.005-1.030); Urobilinogen,Urine 0.2 EU/dl (0.2)
[2023-07-22 09:24] LABS: Chloride 108 mmol/L (98-107)
[2023-07-22 09:25] LABS: Potassium 3.7 mmoL/L (3.5-5.1); Sodium 139 mmol/L (136-145)
[2023-07-22 09:27] LABS: Alanine Aminotransferase 32 U/L (12-78); Albumin/Globulin Ratio 1.5 (1.1-1.8); Alkaline Phosphatase 93 U/L (38-126); Anion Gap 15.7 mEq/L (5-15); Aspartate Amino Transferase 40 U/L (14-36); Bilirubin,Total 0.8 mg/dl (0.2-1.3); Blood Urea Nitrogen 13 mg/dl (7-17); Calcium 9.9 mg/dl (8.4-10.2); Carbon Dioxide 19 mmol/L (22.0-30.0); Creatinine Clearance Estimated 80 mL/min (50-200); Estimated Glomerular Filt Rate 68 ml/min (>60); GFR (African American) 82 ML/MIN (>60); Globulin 3.4 g/dL (1.3-3.2); Glucose 143 mg/dl (74-100); Lipase 80 U/L (23-300); Total Protein,Serum 8.4 g/dl (6.3-8.2)
[2023-07-22 09:35] LABS: HCG Qualitative, Serum Negative (Negative)
[2023-07-22 09:46] LABS: Bilirubin,Urine 1+ (Negative)
[2023-07-22 09:48] VITALS: BP 106/75; PULSE 58; O2SAT 100
[2023-07-22 09:48] LABS: WBC,Urine 20-50 #/hpf (0-3)
[2023-07-22 09:52] LABS: Bacteria,Urine 2+ /lpf; Mucus,Urine 2+ /lpf
[2023-07-22 10:00] VITALS: BP 111/66; PULSE 50; O2SAT 98
--- NOTE | 2023-07-22 11:21 | PC.NURSE ---
pt requesting to speak to ER MD again before disposition.
[2023-07-22 11:25] VITALS: BP 111/66; PULSE 55; RESP 16; TEMP 36.4; O2SAT 98
== END 2023-07-22 11:27 | disposition home or self-care (01) ==
PROVIDERS: Emergency Provider Student in an Organized Health Care Education/Training Program
DX: R11.2 Nausea with vomiting, unspecified (principal); F12.988 Cannabis use, unspecified with other cannabis-induced disorder; F17.200 Nicotine dependence, unspecified, uncomplicated; F41.9 Anxiety disorder, unspecified
CPT/HCPCS: 80053; 81001; 83690; 84703; 85025; 87086; 93005; 96361; 96374; 99285; J1790

== ENCOUNTER 2023-11-05 14:52 | Emergency (ER) | payer MEDICAID, SELFPAY ==
[2023-11-05 14:53] VITALS: BP 121/76; PULSE 62; RESP 22; TEMP 36.7; O2SAT 100; BMI 18.8
[2023-11-05] MEDS: ACETAMINOPHEN 1,000MG/100ML VIAL 1000 MG IV (15:11)
--- NOTE | 2023-11-05 15:20 | ED_ITS ---
Discharge Plan Disposition Patient Disposition: Home, Self-Care Condition: Good Prescriptions Prescriptions: New capsaicin 0.1 % cream 1 applic topical BID Qty: 60 0RF Rx Instructions: do not wash area for at least 30 min after application. wear gloves and wash hands after ondansetron 4 mg tablet,disintegrating 4 mg PO Q6H PRN (Reason: nausea and vomiting) Qty: 10 0RF No Action buspirone 10 mg tablet 10 mg PO BID Qty: 60 1RF Vraylar 1.5 mg capsule 1.5 mg PO DAILY Qty: 30 1RF Referrals Follow up/Referrals: Provider,Referral, [Primary Care Provider] - See instructions Activity Restrictions/Add. Instructions Additional Instructions/Restrictions: Call your family doctor to establish care for this visit to the emergency department and schedule follow-up within 48 hours to ensure improvement. If you have any worsening of your condition or any other concerning signs or symptoms, return to the emergency department or your primary care doctor for further evaluation. Clinical Impressions Clinical Impression: Enteritis, Vomiting Instructions Patient Instructions: DI for Acute Abdominal Pain Discharge ED Provider: Dereck Mukherjee General Adult HPI General Chief complaint: Abdominal Pain Stated complaint: abd pain Time Seen by Provider: 11/05/23 14:54 Mode of Arrival: Ambulatory Source of Information: Patient and Parent(s) Limitations: No Limitations Description of Symptoms (Recalled from ER Triage Doc. by RN): Patient brought in via wheel chair with complaints of abdominal pain. Patient screaming and tearful stating pain 10/10. Patient denies fever, diarrhea. Reports some vomiting. Patient reports history of similar episodes but does not have diagnosis. History of Present Illness HPI narrative: This is a very outspoken 28-year-old female presenting with abdominal pain. Patient has abdominal pain frequently. She has been seen in multiple emergency departments including this 1 and diagnosed largely with cannabinoid hyperemesis related abdominal pain. Patient still using marijuana states that this abdominal pain started this morning, 4/4 around 6 AM. Did not wake her up from sleep. Started after she woke up. It is diffuse, cramping, not made better or worse by anything in particular, does not radiate, not associated with fevers or chills, diarrhea, constipation, dysuria, hematuria, abnormal vaginal discharge or bleeding. Patient has been having bloody, nonbilious vomiting and nausea associated with p.o. intake. Denies abdominal surgical history, chance of , recent travel, or any other relevant history or concerns. Please note that above description of symptoms, in this electronic medical record under categorization of recalled from ER triage doctor by RN are reflective of an initial nursing assessment, however, is not reflective of my full history and physical exam that was personally taken and clarified. Consequentially, this preceding description of symptoms, which may include the patient's categorized chief complaint in the EMR, do not reflect my personal clinical impression, and the ultimate description of history of present illness and patient stated complaints should be deferred to this section of the note. Unless stated otherwise or congruent with this section of the note, additional signs, symptoms, or incongruence should be interpreted as inaccurate with my clinical impression. Related Data Previous Rx's Medication Instructions Recorded buspirone 10 mg tablet 10 mg PO BID #60 tabs 08/26/23 cariprazine 1.5 mg capsule 1.5 mg PO DAILY #30 caps 08/26/23 (Vraylar) capsaicin 0.1 % topical cream 1 applic topical BID #60 grams 11/05/23 ondansetron 4 mg disintegrating 4 mg PO Q6H PRN nausea and 11/05/23 tablet vomiting #10 tabs Allergies Allergy/AdvReac Type Severity Reaction Status Date / Time No Known Allergies Allergy Verified 08/26/23 14:10 [facility] Disclaimer: The information contained in this section may have been updated after the patient was seen, as this information can be updated by other users. Medical History (Updated 11/05/23 @ 18:28 by Dereck Mukherjee MD) Generalized anxiety disorder Mood disorder Anxiety Urinary tract infection Vulvar itching Possible exposure to STD Vaginitis Cat bite Surgical History (Updated 08/26/23 @ 13:31 by Rosina Castellanos APRN) History of wisdom tooth extraction H/O colonoscopy Family History Other Coronary artery disease Substance abuse Social History (Updated 08/26/23 @ 13:30 by Rosina Castellanos APRN) Smoking Status: Current every day smoker tobacco type: e-cigarettes second hand exposure: No alcohol intake: current counseling given: No substance use type: denies use and marijuana counseling given: No current occupational status: other details: 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 Travel in the last 8 weeks: None adopted: No caregiver/support person: No foster care: No household members: significant other housing: house lives independently: Yes marital status: single number of children: 0 number of grandchildren: 0 education level: high school Hx Recent Travel: No sexually active: Yes caffeine: Yes physical activity: none working smoke detector in home: Yes fire extinguisher in home: No carbon monox detector in home: No firearms in home: No do you feel safe at home: Yes victim of physical abuse: No victim of emotional abuse: No victim of sexual abuse: No ROS Obtained: Yes All systems reviewed & no additional complaints except as documented Physical Exam General General appearance: alert, in no apparent distress and other (screaming, swearing. distractible) Head Head exam: atraumatic and normocephalic Eye Eye exam: Present normal appearance, PERRL and EOMI ENT ENT exam: Present mucous membranes moist Neck Neck exam: Present normal inspection, full ROM and trachea midline Respiratory Respiratory exam: Present normal lung sounds bilaterally; Absent respiratory distress, wheezes, stridor, accessory muscle use or prolonged expiratory phase Cardiovascular Cardiovascular exam: Present regular rate and normal rhythm Abdominal Exam Abdominal exam: Present soft; Absent distention, tenderness, guarding, rebound or rigidity Comment: Pain made better with application of pressure. Extremities Exam Extremities exam: Absent edema Back Exam Back exam: Absent CVA tenderness (R) or CVA tenderness (L) Neurological Exam Neurological exam: Present alert, oriented X3, CN II-XII intact and normal gait; Absent motor sensory deficit Skin Skin exam: Present warm and dry; Absent diaphoresis or erythema Medical Decision Making Medical Records Medical records reviewed: Yes I reviewed the patient's medical records. Marcus Inquiry Pt receiving controlled substance: No Marcus was queried for this patient: No Vital Signs: 11/05/23 14:53 11/05/23 16:14 11/05/23 16:30 Temperature 98.1 F Temperature Source Oral Pulse Rate 52 L 59 L Pulse Rate [Right] 62 Respiratory Rate 22 Blood Pressure 108/88 L 117/72 Blood Pressure [Right Arm] 121/76 Blood Pressure Mean 93 87 Blood Pressure Mean [Right Arm] 91 Blood Pressure Source Blood Pressure Source [Right Arm] Automatic Cuff 02 Sat by Pulse Oximetry 100 100 96 Oxygen Delivery Method Room Air 11/05/23 19:23 Temperature 98.2 F Temperature Source Oral Pulse Rate 64 Pulse Rate [Right] Respiratory Rate 16 Blood Pressure 110/64 Blood Pressure [Right Arm] Blood Pressure Mean Blood Pressure Mean [Right Arm] Blood Pressure Source Automatic Cuff Blood Pressure Source [Right Arm] 02 Sat by Pulse Oximetry Oxygen Delivery Method Room Air Lab Data Lab Results 11/05/23 15:00: WBC 10.4, RBC 4.61, Hgb 14.2, Hct 43.6, MCV 94.6, MCH 30.8, MCHC 32.6, RDW 13.5, Plt Count 173, MPV 9.6, Neut % (Auto) 88.1 H, Lymph % (Auto) 7.7 L, [place] % (Auto) 3.6, Eos % (Auto) 0.2, Baso % (Auto) 0.4, Neut # (Auto) 9.2 H, Lymph # (Auto) 0.8, [place] # (Auto) 0.4, Eos # (Auto) 0.0, Baso # (Auto) 0.0, Total Counted 100, Neutrophils % (Manual) 90 H, Lymphocytes % (Manual) 8 L, Monocytes % (Manual) 2, Platelet Estimate Normal, RBC Morphology Normal, ESR 15, Sodium 140, Potassium 3.6, Chloride 114 H, Carbon Dioxide 14 L, Anion Gap 15.6 H , BUN 16, Creatinine 0.90, Estimated Creat Clear 75, Estimated GFR 76, Est GFR ( Amer) 92, Glucose 134 H, Lactate 3.0 H, Calcium 10.1, Total Bilirubin 0.7, AST 43 H, ALT 37, Alkaline Phosphatase 85, C-Reactive Protein 1.0, Total Protein 7.6, Albumin 4.7, Globulin 2.9, Albumin/Globulin Ratio 1.6, Lipase 60, HCG, Quant < 2 11/05/23 15:00 11/05/23 15:00 Orders (Tests/Meds): ED MEDICATIONS Discontinued Medications Generic Name Dose Route Start Last Admin Trade Name Freq PRN Reason Stop Dose Admin Acetaminophen 1,000 mg 11/05/23 15:00 11/05/23 15:11 Acetaminophen 1,000mg/100ml Vial IV 11/05/23 15:01 1,000 mg ONCE ONE Administration Diphenhydramine HCl 50 mg 11/05/23 15:58 Diphenhydramine 50mg/Ml Vial IV 11/05/23 15:59 ONCE ONE Droperidol 2.5 mg 11/05/23 15:59 11/05/23 16:15 Droperidol 5mg/2ml Vial IV 11/05/23 16:00 2.5 mg ONCE ONE Administration Lactated Ringer's 1,000 mls @ 999 mls/hr 11/05/23 15:39 11/05/23 15:50 Lactated Ringer's 1000 Ml Bag IV 11/05/23 16:39 999 mls/hr .Q1H1M ONE Administration Magnesium Sulfate 2 gm in 50 mls @ 50 mls/hr 11/05/23 17:51 11/05/23 18:12 Magnesium Sulfate 2gm/50ml Premix IV 11/05/23 18:50 50 mls/hr ONCE ONE Administration Iopamidol 75 ml 11/05/23 16:13 11/05/23 16:15 Iopamidol-370 (76%);100ml Bottle IV 11/05/23 16:14 75 ml ONCE ONE Administration Ketorolac Tromethamine 15 mg 11/05/23 15:39 11/05/23 15:49 Ketorolac 30mg/Ml Vial IV 11/05/23 15:40 15 mg ONCE ONE Administration Prochlorperazine Edisylate 10 mg 11/05/23 15:58 Prochlorperazine 10mg/2ml Vial IV 11/05/23 15:59 ONCE ONE Sodium Chloride 10 ml 11/05/23 16:13 11/05/23 16:15 Sodium Chloride 0.9% 10ml Syr (Rad Only) IV 12/05/23 16:12 10 ml NEEDED PRN Administration Maintain IV Site ORDERS Category Date Time Status CT abdomen pelvis w con Stat Cat Scan 11/05/23 15:39 Completed CBC w/Auto Diff [Complete Blood Count Auto Diff] Stat Lab 11/05/23 15:00 Completed CMP [Comprehensive Metabolic Panel] Stat Lab 11/05/23 15:00 Completed CRP [C-Reactive Protein] Stat Lab 11/05/23 15:00 Completed ESR [Erythrocyte Sedimentation Rate] Stat Lab 11/05/23 15:00 Completed HCG,Quantitative Stat Lab 11/05/23 15:00 Completed Lactic Acid Stat Lab 11/05/23 15:00 Completed Lipase Stat Lab 11/05/23 15:00 Completed Medical Decision Narrative: This is a very outspoken 28-year-old female presenting with abdominal pain. Patient has abdominal pain frequently. She has been seen in multiple emergency departments including this 1 and diagnosed largely with cannabinoid hyperemesis related abdominal pain. Patient still using marijuana states that this abdominal pain started this morning, 4/4 around 6 AM. Did not wake her up from sleep. Started after she woke up. It is diffuse, cramping, not made better or worse by anything in particular, does not radiate, not associated with fevers or chills, diarrhea, constipation, dysuria, hematuria, abnormal vaginal discharge or bleeding. Patient has been having bloody, nonbilious vomiting and nausea associated with p.o. intake. Denies abdominal surgical history, chance of , recent travel, or any other relevant history or concerns. It should be noted the patient does have hyperemesis secondary to cannabinoid use and abdominal pain, still currently using which is complicating care. History was obtained via conversation with patient. On arrival, patient hemodynamically stable, alert, oriented x4, GCS 15, moving all extremities spontaneously, pupils equal and reactive to light. Full physical exam performed and significant for well-appearing 28-year-old female who is in no acute distress. Abdomen is soft, nondistended, nontender and pain actually made better with application of pressure. No flank tenderness or overlying skin changes. Patient hemodynamically stable, afebrile, normotensive. Acting appropriately, outspoken, swearing. Differential includes cannabinoid hyperemesis, PUD, gastritis, enteritis, gastroenteritis, pancreatitis, SBO, colitis, diverticulitis, nephrolithiasis, UTI, , cholecystitis, choledocholithiasis, appendicitis, hepatitis, torsion, aortic pathology, mesenteric ischemia among others. Patient was given IV Tylenol for symptomatic management and correction of underlying abnormalities. Workup independently interpreted and significant for nonactionable CBC or chemistry. Lactate mildly elevated 3, likely due to vomiting and dehydration. Lipase negative, hCG negative. CT abdomen pelvis with enteritis, no acute intervenable intra-abdominal pathology. See radiology read for full review of final results. Independent interpretation of EKG shows incomplete right bundle branch block. Patient ME interval normal at 165, QRS normal at 98, QTc mildly prolonged at 498 ms. Patient given 2 g magnesium IV for this. On reevaluation, patient sleeping comfortably after droperidol. Patient states her abdomen is feeling much better. Given patient presentation, workup, history, this most likely represents gastroenteritis in the setting of hyperemesis gravidarum. Because patient at baseline without signs or symptoms of clinical decompensation, deemed appropriate for discharge. Results were relayed to patient who voiced understanding and were agreeable to outpatient management and follow up. I discussed my clinical impression with patient and answered all questions. At this time, the evidence for any other entities in the differential is insufficient to warrant any further testing or ED observation. This was explained as well. Advisory was given that persistent or worsening symptoms require further evaluation. I confirmed the understanding of this discussion. Critical Care Critical Care Time Critical Care Time: No
[2023-11-05 15:25] LABS: Basophils % 0.4 % (0.1-2.0); Eosinophils % 0.2 % (0.1-12.0); Hematocrit 43.6 % (37.0-47.0); Hemoglobin 14.2 g/dL (12.2-16.2); Lymphocytes # 0.8 K/mm3 (0.7-4.5); Lymphocytes % 7.7 % (10-50); Mean Corpuscular HGB Conc 32.6 g/dL (31.8-35.4); Mean Corpuscular Hemoglobin 30.8 pg (27.0-31.2); Mean Corpuscular Volume 94.6 fl (81-99); Mean Platelet Volume 9.6 fl (7.4-10.4); Monocytes # 0.4 K/mm3 (0.1-1.0); Monocytes % 3.6 % (1.7-9.3); Neutrophils # 9.2 K/mm3 (1.8-7.8); Neutrophils % 88.1 % (37.0-80.0); Platelet Count 173 K/mm3 (142-424); Red Blood Count 4.61 M/mm3 (4.20-5.40); Red Cell Distribution Width 13.5 % (11.5-17.5); White Blood Count 10.4 K/mm3 (4.8-10.8)
[2023-11-05 15:35] LABS: Chloride 114 mmol/L (98-107)
[2023-11-05 15:36] LABS: Potassium 3.6 mmoL/L (3.5-5.1); Sodium 140 mmol/L (136-145)
[2023-11-05 15:38] LABS: Alanine Aminotransferase 37 U/L (12-78); Alkaline Phosphatase 85 U/L (38-126); Anion Gap 15.6 mEq/L (5-15); Aspartate Amino Transferase 43 U/L (14-36); Bilirubin,Total 0.7 mg/dl (0.2-1.3); Blood Urea Nitrogen 16 mg/dl (7-17); Carbon Dioxide 14 mmol/L (22.0-30.0); Creatinine Clearance Estimated 75 mL/min (50-200); Estimated Glomerular Filt Rate 76 ml/min (>60); GFR (African American) 92 ML/MIN (>60); Glucose 134 mg/dl (74-100); Lipase 60 U/L (23-300); MANUAL DIFFERENTIAL MANUAL DIFFERENTIAL (MANUAL DIFF)
[2023-11-05 15:39] LABS: Albumin Level 4.7 g/dl (3.5-5.0); Albumin/Globulin Ratio 1.6 (1.1-1.8); Calcium 10.1 mg/dl (8.4-10.2); Globulin 2.9 g/dL (1.3-3.2); Total Protein,Serum 7.6 g/dl (6.3-8.2)
--- NOTE | 2023-11-05 15:39 | CT_ITS ---
FINAL REPORT CLINICAL HISTORY: abdominal pain, diffuse, lactic 3 COMPARISON: August 06, 2020 CT FINDINGS: CT OF THE ABDOMEN AND PELVIS WITH CONTRAST Axial CT images of the abdomen and pelvis were obtained after the administration of IV contrast. Coronal reformatted images were also obtained and reviewed.This study was performed with techniques to keep radiation doses as low as reasonably achievable (ALARA). Individualized dose reduction techniques using automated exposure control or adjustment of mA and/or kV according to the patient''s size were employed. Abdomen: The lung bases are clear. The heart is normal in size. The liver has an unremarkable appearance, without evidence of mass or biliary ductal dilatation. Mild nonspecific gallbladder wall thickening is seen. There is no evidence of gallstones. The spleen is unremarkable. No adrenal mass is present. The pancreas has an unremarkable appearance. The kidneys are normal, without evidence of mass or hydronephrosis. The aorta is normal in caliber. There is no free fluid or adenopathy. No mass or abnormal fluid collection is seen. Pelvis: The appendix partially visualized and appears normal. The urinary bladder is unremarkable. Multiple fluid-filled small bowel loops are seen in a nonspecific pattern. There is no evidence of mass or adenopathy. There is no evidence of bowel obstruction. IMPRESSION: Fluid-filled bowel loops in the pelvis in a nonspecific pattern. An enteritis is not excluded. No other abnormality identified. Authenticated and ERN
--- NOTE | 2023-11-05 15:44 | PC.NURSE ---
rounded on pt, pt has been given ice chips.
[2023-11-05] MEDS: KETOROLAC 30MG/ML VIAL 15 MG IV (15:49)
[2023-11-05] MEDS: LACTATED RINGERS 1000ML 1,000 ML 999 ML IV (15:50)
[2023-11-05 16:00] LABS: HCG,Quantitative < 2 mIU/ml (0-5.42)
[2023-11-05 16:02] LABS: Erythrocyte Sedimentation Rate 15 mm/hr (0-20)
[2023-11-05 16:14] VITALS: BP 108/88; PULSE 52; O2SAT 100
[2023-11-05] MEDS: SODIUM CHLORIDE 0.9% 10ML SYR (RAD ONLY) 10 ML IV (16:15)
[2023-11-05] MEDS: droPERidol 5MG/2ML VIAL 2.5 MG IV (16:15)
[2023-11-05] MEDS: IOPAMIDOL-370 (76%);100ML BOTTLE 75 ML IV (16:15)
--- NOTE | 2023-11-05 16:29 | ECG_ITS ---
APPROVED REPORT Exam: Resting ECG HR:52 bpm ECG Measurements Heart Rate 52 AXES NE 165 P 70 QRSd 98 QRS 90 QT 517 T 80 QTc 498 Conclusion SINUS BRADYCARDIA Mildly prolonged QT interval Electronically signed by : UDAY JEAN BAPTISTE, 11/05/2023 21:02:51
[2023-11-05 16:30] VITALS: BP 117/72; PULSE 59; O2SAT 96
[2023-11-05 17:15] LABS: Lymphocytes % 8 % (10-50); Monocytes % 2 % (2-9); Neutrophils % 90 % (42-76); Platelet Estimate Normal; RBC Morphology Normal; Total Cells Counted 100
[2023-11-05] MEDS: MAGNESIUM SULFATE IN WATER 2 GM/50 ML PIGGYBACK IV (18:12)
[2023-11-05 19:21] LABS: Reflex Lactic Add Lactic Reflex
[2023-11-05 19:23] VITALS: BP 110/64; PULSE 64; RESP 16; TEMP 36.8; O2SAT 99
== END 2023-11-05 19:10 | disposition home or self-care (01) ==
PROVIDERS: Emergency Provider Emergency Medicine
DX: R10.84 Generalized abdominal pain (principal); R00.1 Bradycardia, unspecified; K52.9 Noninfective gastroenteritis and colitis, unspecified; R11.2 Nausea with vomiting, unspecified; F12.988 Cannabis use, unspecified with other cannabis-induced disorder; F17.290 Nicotine dependence, other tobacco product, uncomplicated
CPT/HCPCS: 74177; 80053; 83605; 83690; 84702; 85007; 85025; 85651; 86140; 93005; 96361; 96365; 96375; 99285; J0131; J1790; J3475; Q9967

== ENCOUNTER 2024-11-22 08:55 | Emergency (ER) | payer MEDICAID, SELFPAY ==
[2024-11-22] VITALS (8 sets, daily range): BP systolic 95–155; BP diastolic 61–138; PULSE 58–87; RESP 13–20; TEMP 36.7–36.8; O2SAT 92–99; BMI 20.7
--- NOTE | 2024-11-22 08:58 | ED_ITS ---
Discharge Plan Disposition Patient Disposition: Home, Self-Care Condition: Good Prescriptions Prescriptions: New hydroxyzine pamoate 25 mg capsule 25 mg PO Q8H PRN (Reason: panic attack(s)) Qty: 20 0RF No Action Vraylar 1.5 mg capsule 1.5 mg PO DAILY Qty: 30 1RF capsaicin 0.1 % cream 1 applic topical BID Qty: 60 0RF Rx Instructions: do not wash area for at least 30 min after application. wear gloves and wash hands after ondansetron 4 mg tablet,disintegrating 4 mg PO Q6H PRN (Reason: nausea and vomiting) Qty: 10 0RF Referrals Follow up/Referrals: Provider,Referral, MD [Referring] - See instructions Activity Restrictions/Add. Instructions Additional Instructions/Restrictions: You were evaluated in the emergency department today. I am prescribing you Vistaril to have as needed for panic attacks. Please follow-up very closely with your primary care provider as well as with behavioral health. Return to the emergency department for new or worsening symptoms. Please refrain from cannabis use, as this can exacerbate your symptoms. Clinical Impressions Clinical Impression: Panic attack, Cannabis use disorder Stand Alone Forms Stand Alone Forms: Work/School Release Instructions Patient Instructions: Anxiety Disorders, Anxiety and Panic Attacks (Alternative Therapy) Print Language Print Language: Macedonian Discharge ED Provider: Nannette Hanson General Adult HPI General Chief complaint: Anxiety Stated complaint: panic attack Time Seen by Provider: 11/22/24 08:58 History of Present Illness HPI narrative: This patient is a 29-year-old female with a history of generalized anxiety disorder, mood disorder, cannabis use presenting to the emergency department for evaluation with concern for panic attacks. Patient states that she has been dealing with severe, crippling panic attacks for quite some time, stating that when she gets them she gets cramping in her abdomen and carpopedal spasms causing her arms and feet to drive like a praying mantis. She has she was recently started on Seroquel as well as Vraylar, but she feels like she needs something for the breakthrough panic attacks because when she starts panicking she cannot do anything to calm her self down. She notes that this morning, the panic attack was triggered by an argument with her significant other. She states that she woke up to a text that was very upsetting and sent her into a panic. She called EMS, who gave her Zofran with some improvement in her nausea and stomach cramps, but she still was panicking upon arrival. She notes has been worked up multiple times for this in the past and has had EKGs and other labs and things like that, but she states she does not need anything like that because she knows is anxiety, she just wants something to treat her symptoms. Related Data Previous Rx's ?Medication ?Instructions ?Recorded capsaicin 0.1 % topical cream 1 applic topical BID #60 grams 11/05/23 ondansetron 4 mg disintegrating 4 mg PO Q6H PRN nausea and 11/05/23 tablet vomiting #10 tabs cariprazine 1.5 mg capsule 1.5 mg PO DAILY #30 caps 03/01/24 (Vraylar) hydroxyzine pamoate 25 mg capsule 25 mg PO Q8H PRN panic attack(s) 11/22/24 #20 caps Allergies Allergy/AdvReac Type Severity Reaction Status Date / Time No Known Allergies Allergy Verified 03/08/24 09:37 [facility] Disclaimer: The information contained in this section may have been updated after the patient was seen, as this information can be updated by other users. Medical History Generalized anxiety disorder Mood disorder Anxiety Urinary tract infection Vulvar itching Possible exposure to STD Vaginitis Cat bite Surgical History History of wisdom tooth extraction H/O colonoscopy Family History Other Coronary artery disease Substance abuse Social History Smoking Status: Current every day smoker tobacco type: e-cigarettes second hand exposure: No alcohol intake: current alcohol intake frequency: holidays/special occasions only counseling given: No substance use type: denies use and marijuana counseling given: No current occupational status: other details: 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 Travel in the last 8 weeks: None adopted: No caregiver/support person: No foster care: No household members: significant other housing: house lives independently: Yes marital status: single number of children: 0 number of grandchildren: 0 education level: high school Hx Recent Travel: No sexually active: Yes caffeine: Yes physical activity: none working smoke detector in home: Yes fire extinguisher in home: No carbon monox detector in home: No firearms in home: No do you feel safe at home: Yes victim of physical abuse: No victim of emotional abuse: No victim of sexual abuse: No Have you lived/traveled outside [place] in past 30 days?: No Contact w/someone who lives/traveled outside US past 30 days?: No Exposure to someone with infectious disease in past 14 days?: No Do you have a fever (greater than 100.4 F or 38 C)?: No Have you tested positive for COVID-19: No Exposed to someone with COVID-19 in past 14 days?: No Do you have a sore throat?: No Do you have a cough?: No Do you have any weakness?: No Do you have any diarrhea?: No Are you experiencing any unusual bleeding?: No Do you have any muscle aches/pain?: No Do you have any abdominal pain?: No Are you experiencing loss of taste or smell?: No Other Medical History Have you received the Flu Vaccine for this season: No Have you received the Pneumonia Vaccine: No ROS Obtained: Yes All systems reviewed & no additional complaints except as documented Physical Exam General General appearance: alert and anxious Comment: Actively panicking Head Head exam: atraumatic and normocephalic Eye Eye exam: Present normal appearance, PERRL and EOMI ENT ENT exam: Present normal exam, normal oropharynx, mucous membranes moist and normal external ear exam Neck Neck exam: Present normal inspection, full ROM and trachea midline; Absent tenderness Chest Chest inspection: Present normal inspection and symmetric chest wall rise; Absent tenderness Respiratory Respiratory exam: Present normal lung sounds bilaterally; Absent respiratory distress, wheezes, stridor or accessory muscle use Cardiovascular Cardiovascular exam: Present regular rate and normal rhythm Abdominal Exam Abdominal exam: Present soft; Absent distention, tenderness or guarding Extremities Exam Extremities exam: Present normal inspection, full ROM and normal capillary refill; Absent tenderness or edema Back Exam Back exam: Present normal inspection and full ROM; Absent tenderness Neurological Exam Neurological exam: Present alert, oriented X3, CN II-XII intact and normal gait; Absent motor sensory deficit Psychiatric Psychiatric exam: Present anxious Skin Skin exam: Present warm and dry Medical Decision Making Medical Records Medical records reviewed: Yes I reviewed the patient's medical records. Screening: Per USPSTF and CDC recommendations, given the prevalence of disease in our region, it is our hospital?s policy to screen for HIV and viral Hepatitis for all patients aged 18 and over and those with ongoing risk factors. Marcus Inquiry Pt receiving controlled substance: No Vital Signs: 11/22/24 08:57 11/22/24 09:02 11/22/24 09:22 Temperature 98.2 F Temperature Source Oral Pulse Rate 70 80 Pulse Rate [Left Radial] 87 Respiratory Rate 13 Blood Pressure 133/102 H Blood Pressure [Right Arm] 133/102 H Blood Pressure Mean Blood Pressure Mean [Right Arm] 112 02 Sat by Pulse Oximetry 98 95 95 Oxygen Delivery Method Room Air 11/22/24 09:32 11/22/24 10:50 11/22/24 11:09 Temperature Temperature Source Pulse Rate 58 L 58 L Pulse Rate [Left Radial] Respiratory Rate Blood Pressure 155/138 H 95/74 L 96/61 L Blood Pressure [Right Arm] Blood Pressure Mean 142 Blood Pressure Mean [Right Arm] 02 Sat by Pulse Oximetry 99 92 L Oxygen Delivery Method Room Air Room Air 11/22/24 12:52 Temperature Temperature Source Pulse Rate 61 Pulse Rate [Left Radial] Respiratory Rate Blood Pressure 145/111 H Blood Pressure [Right Arm] Blood Pressure Mean Blood Pressure Mean [Right Arm] 02 Sat by Pulse Oximetry 99 Oxygen Delivery Method Lab Data Lab results reviewed: Yes I reviewed the patient's lab results. Lab Results 11/22/24 08:55: WBC 7.7, RBC 4.81, Hgb 15.0, Hct 43.0, MCV 89.4, MCH 31.2, MCHC 34.9, RDW 13.4, Plt Count 196, MPV 11.0 H, Neut % (Auto) 60.4, Lymph % (Auto) 29.9, [place] % (Auto) 7.5, Eos % (Auto) 1.0, Baso % (Auto) 0.8, Neut # (Auto) 4.7, Lymph # (Auto) 2.3, [place] # (Auto) 0.6, Eos # (Auto) 0.1, Baso # (Auto) 0.1, Sodium 144, Potassium 3.9, Chloride 117 H, Carbon Dioxide 14 L, Anion Gap 16.9 H , BUN 8, Creatinine 0.90, Estimated Creat Clear 84, Estimated GFR 75, Est GFR ( Amer) 91, Glucose 110 H, Calcium 9.0, Total Bilirubin 0.4, AST 34, ALT 19, Alkaline Phosphatase 65, Troponin I < 0.01, Total Protein 8.0, Albumin 4.5, Globulin 3.5 H, Albumin/Globulin Ratio 1.3, Lipase 53, TSH 3.05, Thyroxine (T4) 9.6, Serum HCG, Qual Negative, Salicylates < 1.0 L, Acetaminophen < 10 L, P lasma/Serum Alcohol 169 H, HCV Ab JESSIE w/Rflx PCR Qn Negative 11/22/24 10:57: Urine Color Yellow, Urine Appearance Clear, Urine pH 8.0, Ur Specific [place] 1.020, Urine Protein Trace, Urine Glucose (UA) Negative, Urine Ketones Negative, Urine Blood Negative, Urine Nitrate Negative, Urine Bilirubin Negative, Urine Urobilinogen 0.2, Ur Leukocyte Esterase Negative, Urine RBC Occasional, Urine WBC Occasional, Ur Squamous Epith Cells 3-5, Urine Bacteria Trace, Urine Mucus Trace, Urine HCG, Qual Negative, Urine Opiates Screen Negative, Urine Methadone Screen Negative, Ur Barbituates Screen Negative, Ur Phencyclidine Scrn Negative, Ur Amphetamines Screen Negative, U Benzodiazepines Scrn Negative, Urine Cocaine Screen Negative, U Marijuana (THC) Screen Positive H 11/22/24 11:11: VBG pH 7.41, VBG pCO2 33.2 L, VBG pO2 57.2 H, VBG HCO3 20.6 L, V BG Total CO2 21.6 L, VBG O2 Saturation 90.0 H, VBG Base Excess -4.1 L, VBG Lactic Acid 3.2 H 11/22/24 12:11: Plasma/Serum Alcohol 90 H 11/22/24 08:55 11/22/24 08:55 Orders (Tests/Meds): ED MEDICATIONS Generic Name Dose Route Start Last Admin Trade Name Freq PRN Reason Stop Dose Admin Sodium Chloride 10 ml 11/22/24 08:55 Sodium Chloride 0.9% 10ml Vial IV 12/22/24 08:54 NEEDED PRN to Dilute Lorazepam inj Sodium Chloride 8 ml 11/22/24 11:41 Sodium Chloride 0.9% 10ml Vial IV 12/22/24 11:40 NEEDED PRN dilute pepcid Discontinued Medications Generic Name Dose Route Start Last Admin Trade Name Girish PRN Reason Stop Dose Admin Acetaminophen 1,000 mg 11/22/24 11:41 11/22/24 11:51 Acetaminophen 1,000mg/100ml Vial IV 11/22/24 11:42 1,000 mg ONCE ONE Administration Dicyclomine HCl 20 mg 11/22/24 10:29 11/22/24 10:36 Dicyclomine 20 Mg/2ml Vial IM 11/22/24 10:30 20 mg ONCE ONE Administration Droperidol 2.5 mg 11/22/24 12:56 11/22/24 12:59 Droperidol 5mg/2ml Vial IV 11/22/24 12:57 2.5 mg ONCE ONE Administration Famotidine 20 mg 11/22/24 11:41 11/22/24 11:50 Famotidine 20mg/2ml Vial IV 11/22/24 11:42 20 mg ONCE ONE Administration Lactated Ringer's 1,000 mls @ 999 mls/hr 11/22/24 10:51 11/22/24 11:09 Lactated Ringer's 1000 Ml Bag IV 11/22/24 11:51 999 mls/hr .Q1H1M ONE Administration Iopamidol 75 ml 11/22/24 13:12 11/22/24 13:12 Iopamidol-370 (76%);100ml Bottle IV 11/22/24 13:13 75 ml ONCE ONE Administration Ketorolac Tromethamine 15 mg 11/22/24 11:41 11/22/24 11:56 Ketorolac 30mg/Ml Vial IV 11/22/24 11:42 15 mg ONCE ONE Administration Lorazepam 1 mg 11/22/24 08:55 11/22/24 09:07 Lorazepam 2mg/Ml Vial IV 11/22/24 08:56 1 mg ONCE ONE Administration Metoclopramide HCl 5 mg 11/22/24 11:41 11/22/24 11:56 Metoclopramide Hcl 10mg/2ml Vial IVP 11/22/24 11:42 5 mg ONCE ONE Administration Ondansetron HCl 4 mg 11/22/24 10:29 11/22/24 10:36 Ondansetron 4mg Odt SL 11/22/24 10:30 4 mg ONCE ONE Administration Sodium Chloride 10 ml 11/22/24 13:12 11/22/24 13:12 Sodium Chloride 0.9% 10ml Syr (Rad Only) IV 11/22/24 13:13 10 ml ONCE ONE Administration ORDERS Category Date Time Status CT abdomen pelvis w con Stat Cat Scan 11/22/24 12:[address] head/brain wo con Stat Cat Scan 11/22/24 12:56 Completed Acetaminophen Stat Lab 11/22/24 08:55 Completed Complete Blood Count Auto Diff Stat Lab 11/22/24 08:55 Completed Comprehensive Metabolic Panel Stat Lab 11/22/24 08:55 Completed Ethanol [Ethyl Alcohol] Stat Lab 11/22/24 08:55 Completed Ethyl Alcohol Timed Lab 11/22/24 12:11 Completed HIV Combo Stat Lab 11/22/24 08:55 Received Hepatitis C Ab Qual. W/ RFX Stat Lab 11/22/24 08:55 Completed Lipase Stat Lab 11/22/24 08:55 Completed Salicylate Stat Lab 11/22/24 08:55 Completed Serum [HCG Qualitative, Serum] Stat Lab 11/22/24 08:55 Completed T4 (Thyroxine) Stat Lab 11/22/24 08:55 Completed TSH [Thyroid Stimulating Hormone] Stat Lab 11/22/24 08:55 Completed Trop I [Troponin I] Stat Lab 11/22/24 08:55 Completed Troponin I Q3H Lab 11/22/24 17:00 Ordered UA [Urinalysis and Microscopic] Stat Lab 11/22/24 10:57 Completed UDS [Drug Screen,Urine] Stat Lab 11/22/24 10:57 Completed Urine , HCG Qual. Stat Lab 11/22/24 10:57 Completed VBG [Venous Blood Gas] Stat RT 11/22/24 11:11 Completed ECG Data Tracing #1: I reviewed this ECG and interpreted as documented below: Normal sinus rhythm with sinus arrhythmia with a ventricular rate of 65 bpm. Incomplete right bundle branch block. No acute ST changes concerning for ischemia. Normal intervals including a QTc of 449 ms. ECG initial impression date: 11/22/24 ECG initial impression time: 11:01 Medical Decision Narrative: In summary, this patient is a 29-year-old female presenting to the Emergency Department for evaluation of panic attack. Differential diagnoses considered include but are not limited to anxiety, panic, dysrhythmia, electrolyte derangements. Ruling out the most morbid conditions drove assessment. It should be noted patient's history includes anxiety and mood disorder which are not at goal therapy. This complicates all aspects of care by increasing patient's risk for morbidity. I reviewed patient's past medical records and noted prior evaluations in the past for panic attacks/anxiety as well as prior behavioral health evaluations. On exam, the patient is actively panicking, very anxious and tearful. She declines any lab evaluation, EKG, or further workup, as she states that she knows this is a panic attack and has had workups in the past that were fine. She states that this was triggered by an argument with significant other and attacks that she woke up to this morning that was very upsetting. She is requesting something to help with the symptoms. She received Zofran with EMS with improvement in her nausea and abdominal cramping, but she still anxious and panicking. She was given 1 mg of IV Ativan. Cardiopulmonary exam is reassuring, abdominal exam is benign, vitals are normal on cardiac telemetry. On multiple subsequent reassessments, the patient had clinical improvement was feeling a lot better. She was walking to the bathroom, acting normally. She states she felt good and was ready to go home, was appreciative of prescription for Vistaril. I had prepared her discharge, at which point patient went to the bathroom again. She spent a very long time in there, and came back acting abnormally. She still wanted to go home, so IV was removed. She was able to answer questions appropriately and follow commands, but appeared more drowsy. She had some continued cramping, for which I gave her sublingual zofran and IM bentyl, as IV had been removed. She continued to have worsening lethargy and abnormal behavior, rocking around on the bed, falling asleep mid sentence. She peed on herself in the bed, fell asleep sitting up, wasn't able to stay awake and maintain a normal conversation. This was at 2 hours into her ED stay, 2 hours after getting ativan. I feel this is out of proportion to medication she was given here, but she denies taking anything. She denies any concerns or complaints. She denies any drug use aside from smoking weed. She states that she did not attempt to harm herself with any sort of overdose and did not use any substances or take any extra medications. We initially had called for her ride who arrived and was ready to take her home, but I advised I do not feel comfortable with her going home anymore with this very abnormal behavior, which I feel is out of proportion to getting a one-time dose of Ativan 2 hours ago. Vitals are still normal on cardiac telemetry and she does not have any focal neurologic deficit, CN intact, moving all 4 extremities equally. Cardiopulmonary exam is reassuring, she is not tachycardic or hypoxic. Abdominal exam is benign. I added on a workup of CBC, CMP, troponin, TSH, T4, acetaminophen, salicylate, ethanol level, test, VBG, urinalysis, urine drug screen, EKG. She was given a bolus of IV fluids. Labs obtained and reassuring with reassuring CBC with no significant leukocytosis or anemia, VBG demonstrates mildly elevated lactic acid, chemistry demonstrates mildly elevated anion gap, hyperchloremia, low bicarb. Acetaminophen and salicylate levels are negative. IV fluid resuscitation is ongoing at this time. Urinalysis is not concerning for infection. Urine drug screen is positive for marijuana, and she does have a history of cannabis hyperemesis in the past. Ethanol level is 169. Patient admits to drinking last night but states that she is not drunk since then. Repeat ethanol level shows that is downtrending to 90. I continued to reassess the patient frequently, and she progressively became more and more alert but also agitated. She complains of severe abdominal pain and cramping, for which she had already received Bentyl and Zofran, and now I have ordered IV Toradol, acetaminophen, small dose of IV Reglan, and Pepcid. I did not want to give her anything sedating given that we have had so many issues with her being lethargic earlier after a one-time dose of Ativan. I did not know that she had alcohol on board when we administered the Ativan. This did not help her pain, and she kept screaming, complaining of abdominal pain that is all over. She has no localizable tenderness. She notes that this is similar to pain that she has had in the past. She then also started complaining that she was having hallucinations of her grandmother and behaving erratically. I decided at this point to administer droperidol for her agitation and continued abdominal pain. EKG had already been obtained which was reassuring. Droperidol was administered at 1300. I also ordered CT head without contrast and CT abdomen pelvis with IV contrast given her current symptoms and presentation. I independently interpreted CT scans prior to radiology read and noted no obvious acute intra-abdominal infection or inflammation, no intracranial hemorrhage or large space-occupying lesion. Please see radiology read for final interpretation. On multiple subsequent reassessments, patient is resting comfortably and is feeling better after droperidol. Symptoms are resolved, she metabolized alcohol and is alert, conversational, at her neurologic baseline. At 1500 at end of 2 hours observation. After administration of droperidol, patient was deemed to be appropriate for discharge home with prescription for hydroxyzine, instructions for close follow-up with PCP and Vistaril, and counseling to avoid marijuana use. Strict return precautions were given Critical Care Critical Care Time Critical Care Time: Yes Attestation: On 11/22/24, the high probability of a clinically significant, sudden or life threatening deterioration of the following system(s) required my full and direct attention, intervention and personal management. The time I documented below is in addition to time spent performing reported procedures but includes the following listed in this critical care notation. Total Time Total Critical Care Time: 45
[2024-11-22] MEDS: LORazepam 2MG/ML VIAL 1 MG IV (09:07)
--- NOTE | 2024-11-22 09:47 | PC.NURSE ---
pt ambulatory to bathroom but did not leave sample
--- NOTE | 2024-11-22 10:23 | PC.NURSE ---
TRN went to discharge pt. pt very sleepy, not willing to answer questions. pt curled up in bed in position. called charge nurse into room to help assess pt.
--- NOTE | 2024-11-22 10:29 | PC.NURSE ---
using pts cell phone, called friend to come pick pt up since she is ready for discharge
[2024-11-22 10:36] LABS: Hepatitis C Ab Qual. W/ RFX NEGATIVE (Negative)
[2024-11-22] MEDS: DICYCLOMINE 20 MG/2ML VIAL IM (10:36)
[2024-11-22] MEDS: ONDANSETRON 4MG ODT 4 MG SL (10:36)
[2024-11-22 10:56] LABS: Basophils # 0.1 K/mm3 (0-0.2); Basophils % 0.8 % (0.1-2.0); Eosinophils # 0.1 Kmm3 (0.0-0.4); Lymphocytes # 2.3 K/mm3 (0.7-4.5); Lymphocytes % 29.9 % (10-50); Mean Corpuscular HGB Conc 34.9 g/dL (31.8-35.4); Mean Corpuscular Hemoglobin 31.2 pg (27.0-31.2); Mean Corpuscular Volume 89.4 fl (81-99); Monocytes # 0.6 K/mm3 (0.1-1.0); Monocytes % 7.5 % (1.7-9.3); Neutrophils # 4.7 K/mm3 (1.8-7.8); Neutrophils % 60.4 % (37.0-80.0); Nucleated Red Blood Cells # 0 10^3/uL; Nucleated Red Blood Cells % 0 %; Platelet Count 196 K/mm3 (142-424); Red Blood Count 4.81 M/mm3 (4.20-5.40); Red Cell Distribution Width 13.4 % (11.5-17.5); Red Cell Distribution Width-SD 43.9 fL; White Blood Count 7.7 K/mm3 (4.8-10.8)
--- NOTE | 2024-11-22 11:01 | ECG_ITS ---
APPROVED REPORT Exam: Resting ECG HR:65 bpm ECG Measurements Heart Rate 65 AXES OR 133 P 71 QRSd 107 QRS 88 QT 438 T 79 QTc 449 Conclusion SINUS RHYTHM WITH SINUS ARRHYTHMIA INCOMPLETE RIGHT BUNDLE BRANCH BLOCK [90+ ms QRS DURATION, TERMINAL R IN V1/V2, 40+ ms S IN I/aVL/V4/V5/V6] No acute ST changes concerning for ischemia Electronically signed by : SWAPNA ARMANDO, 11/22/2024 15:33:09
--- NOTE | 2024-11-22 11:01 | PC.NURSE ---
pts friend come back to pick pt up. MD at bedside. orders placed, IV put in left ac.
[2024-11-22 11:02] LABS: Microscopic, Urine URINE MICROSCOPIC (MICROSCOPIC)
[2024-11-22 11:03] LABS: Ethyl Alcohol 169 mg/dl (0-10); HCG Qualitative, Serum Negative (Negative)
[2024-11-22 11:04] LABS: Alanine Aminotransferase 19 U/L (12-78); Albumin Level 4.5 g/dl (3.5-5.0); Albumin/Globulin Ratio 1.3 (1.1-1.8); Alkaline Phosphatase 65 U/L (38-126); Anion Gap 16.9 mEq/L (5-15); Aspartate Amino Transferase 34 U/L (14-36); Bilirubin,Total 0.4 mg/dl (0.2-1.3); Blood Urea Nitrogen 8 mg/dl (7-17); Carbon Dioxide 14 mmol/L (22.0-30.0); Chloride 117 mmol/L (98-107); Creatinine Clearance Estimated 84 mL/min (50-200); Estimated Glomerular Filt Rate 75 ml/min (>60); GFR (African American) 91 ML/MIN (>60); Globulin 3.5 g/dL (1.3-3.2); Glucose 110 mg/dl (74-100); Lipase 53 U/L (23-300); Potassium 3.9 mmoL/L (3.5-5.1); Sodium 144 mmol/L (136-145)
[2024-11-22 11:06] LABS: Appearance,Urine CLEAR (Clear); Bilirubin,Urine Negative (Negative); Blood, Urine Negative (Negative); Color,Urine YELLOW (Yellow); Glucose,Urine (UA) Negative (Negative); Ketones,Urine Negative (Negative); Leukocyte Esterase,Urine Negative (Negative); Nitrate,Urine Negative (Negative); Protein,Urine TRACE (Negative); Urobilinogen,Urine 0.2 EU/dl (0.2)
[2024-11-22 11:06] LABS: Acetaminophen < 10 ug/ml (10-30); Salicylate < 1.0 mg/dL (2.0-20.0)
[2024-11-22 11:09] LABS: Urine Pregnancy, HCG Qual. Negative (Negative)
[2024-11-22] MEDS: LACTATED RINGERS 1000ML 1,000 ML 999 ML IV (11:09)
[2024-11-22 11:17] LABS: Bacteria,Urine Trace /lpf; Barbiturates Screen,Urine Negative ng/ml (<200); Mucus,Urine Trace /lpf; RBC,Urine Occasional #/hpf (0-3); WBC,Urine Occasional #/hpf (0-3)
[2024-11-22 11:17] LABS: VBG Base Excess -4.1 mmol/L (-2.4-2.3); VBG HCO3 20.6 mmol/L (23-30); VBG PCO2 33.2 mmol/L (35-51); VBG PH 7.41 mmol/L (7.31-7.41); VBG PO2 57.2 mmol/L (28-40); VBG Total CO2 21.6 mmol/L (23-27)
[2024-11-22 11:17] LABS: Troponin I < 0.01 ng/ml (0.00-0.034)
[2024-11-22 11:18] LABS: Amphetamine/Metha Screen,Urine Negative ng/ml (<1000); Benzodiazepines Screen,Urine Negative ng/ml (<200)
[2024-11-22 11:19] LABS: Methadone Screen,Urine Negative ng/ml (<300)
[2024-11-22 11:19] LABS: Lactate Venous 3.2 mmol/L (0.4-2.0)
[2024-11-22 11:20] LABS: T4 (Thyroxine) 9.6 ug/dl (5.53-11.0)
[2024-11-22 11:20] LABS: Cannabinoid Screen,Urine Positive ng/ml (<50); Cocaine Screen,Urine Negative ng/ml (<300)
[2024-11-22 11:21] LABS: Opiate Screen,Urine Negative ng/ml (<300); Phencyclidine Screen,Urine Negative ng/ml (<25)
[2024-11-22 11:34] LABS: Thyroid Stimulating Hormone 3.05 uIU/mL (0.465-4.68)
[2024-11-22] MEDS: FAMOTIDINE 20MG/2ML VIAL 20 MG IV (11:50)
[2024-11-22] MEDS: ACETAMINOPHEN 1,000MG/100ML VIAL 1000 MG IV (11:51)
[2024-11-22] MEDS: KETOROLAC 30MG/ML VIAL 15 MG IV (11:56)
[2024-11-22] MEDS: METOCLOPRAMIDE HCL 10MG/2ML VIAL 5 MG IVP (11:56)
[2024-11-22 12:27] LABS: Ethyl Alcohol 90 mg/dl (0-10)
--- NOTE | 2024-11-22 12:56 | CT_ITS ---
FINAL REPORT TECHNIQUE: Axial CT images were performed through the head. Coronal reformatted images were submitted. This study was performed with techniques to keep radiation doses as low as reasonably achievable (ALARA). Individualized dose reduction techniques using automated exposure control or adjustment of mA and/or kV according to the patient's size were employed. CLINICAL HISTORY: hallucinations, AMS FINDINGS: The ventricles are normal in size. There is no evidence of hemorrhage. There is no mass or edema identified. There is no abnormal extra-axial fluid seen. The sinuses are well aerated. IMPRESSION: No acute intracranial process. Reviewed, Interpreted and Dictated by South Mancuso MD Transcribed by Candelaria Rubi Authenticated and [facility]
--- NOTE | 2024-11-22 12:57 | CT_ITS ---
FINAL REPORT TECHNIQUE: After the administration of oral and intravenous contrast, axial images were obtained through the abdomen and pelvis by computed tomography. The study was performed with techniques to keep radiation dose as low as reasonably achievable, (ALARA). Individual dose reduction techniques using automated exposure control or adjustment of mA and/or kV according to the patient's size were employed. CLINICAL HISTORY: gen abd pain/nausea/vomiting COMPARISON: 11/05/2023 FINDINGS: Abdomen: The lung bases are clear. The liver parenchyma is homogeneous. The gallbladder is present. The spleen, pancreas, adrenals and kidneys appear unremarkable. The aorta is normal in caliber. There is no free fluid or adenopathy. Pelvis: The appendix is normal in appearance. The urinary bladder is incompletely distended. The uterus is eccentric to the right. There is no free fluid or adenopathy. IMPRESSION: No acute intra-abdominal process. Reviewed, Interpreted and Dictated by South Mancuso MD Transcribed by Fifi Buenrostro Authenticated and [facility]
[2024-11-22] MEDS: droPERidol 5MG/2ML VIAL 2.5 MG IV (12:59)
--- NOTE | 2024-11-22 13:00 | PC.NURSE ---
pt to scan via stretcher
[2024-11-22] MEDS: IOPAMIDOL-370 (76%);100ML BOTTLE 75 ML IV (13:12)
[2024-11-22] MEDS: SODIUM CHLORIDE 0.9% 10ML SYR (RAD ONLY) 10 ML IV (13:12)
[2024-11-22 15:20] LABS: Reflex Lactic Add Lactic Reflex
[2024-11-24 11:14] LABS: HIV Combo NEGATIVE (Negative)
--- NOTE | 2024-11-25 16:55 | PEERSUPPORT ---
Peer Support Note Patient Information Patient Information: DOS: 11/22/2024 Reason: ETOH ED Ps consult Pt is actively intoxicated, unable to hold a conversation. Ps provided contact information. Pt agrees to follow up phone call with ps. Ps will follow up with pt offering recovery focused support.
== END 2024-11-22 15:09 | disposition home or self-care (01) ==
PROVIDERS: Emergency Provider Emergency Medicine; PCP Family Medicine
DX: F41.0 Panic disorder [episodic paroxysmal anxiety] (principal); F12.90 Cannabis use, unspecified, uncomplicated; R11.2 Nausea with vomiting, unspecified; F39 Unspecified mood [affective] disorder; R53.81 Other malaise
CPT/HCPCS: 70450; 74177; 80053; 80307; 80320; 80329; 81001; 81025; 82803; 83690; 84436; 84443; 84484; 84703; 85025; 86803; 87389; 93005; 96361; 96372; 96374; 96375; 99291; J0131; J0500; J1790; J1885; J2060; J2765; J7120; Q0162; Q9967

== ENCOUNTER 2025-03-22 10:41 | Outpatient (CLI) | payer MEDICAID, SELFPAY ==
--- OUTSIDE RECORDS SUMMARY | 2025-03-22 10:53 | XMS_ITS | Encounter Summary ---
Author Organization Healthcare Address [address] [place] [address] Care Team Providers Care Business Mail Entry Clerk Name Role Phone Adithya Pedro MD Primary Care Provider [phone] Encounter Details Date Type Department Care Team (Late st Contact Info) Description 02/16/2025 Telephone Obstetrics & Gynecology [address] [place] [address] Xiao Gresham MD [address] [place] [address] Social History Tobacco Use Types Packs/Day Years Used Date Smoking Tobacco: Former Cigarettes 0.5 6 2 014 - 2020 Passive Smoke Exposure: Never Smokeless Tobacco: Never Alcohol Use Standard Drinks/Week Comments Yes 12 (1 standard drink = 0.6 oz pu re alcohol) Humiliation, Afraid, Rape, and Kick questionnair e Answer Date Recorded Within the last year, have y ou been afraid of your partner or ex-partner? No 11/16/2024 Within the last year, have y ou been humiliated or emotionally abused in other ways by your partner or ex-partner? No Within the last year, have y ou been kicked, hit, slapped, or otherwise physically hurt by your partner or ex-partner? No 11/16/2024 Within the last year, have y ou been raped or forced to have any kind of sexual activity by your partner or ex-partner? No 11/16/2024 PHQ-2 Answer Date Recorded Patient Health Questionnaire-2 Score 0 12/14/2024 Hunger Vital Sign Answer Date Recorded Within the past 12 months, y ou worried that your food would run out before you got the money to buy more. Sometimes true Within the past 12 months, t he food you bought just didn't last and you didn't have money to get more. Sometimes true PRAPARE - Transportation Answer Date Re corded In the past 12 months, has l ack of transportation kept you from medical appointments or from getting medications? No 11/01 In the past 12 months, has l ack of transportation kept you from meetings, work, or from getting things needed for daily living? No 11/16/2024 PHQ-9 Answer Date Recorded Patient Health Questionnaire-9 Score 4 12/14/2024 Housing Stability Vital Sign Answer Naseem e Recorded In the last 12 months, was t here a time when you were not able to pay the mortgage or rent on time? No 11/16/2024 In the past 12 months, how m any times have you moved where you were living? 4 11/16/2024 At any time in the past 12 m [facility], were you homeless or living in a [place] [facility] (including now)? Yes 11/16/2024 Utilities Answer Date Recorded In the past 12 months has th e electric, gas, oil, or water company threatened to shut off services in your home? Yes 11/16/2024 Comments No Sex and Gender Information Value Date Recorded Sex Assigned at Female 04/01/2024 11:47 AM EDT Legal Sex Female 7:41 PM EDT Gender Identity Female 04/01/2024 11:47 AM EDT Sexual Orientation Straight 04/01/2024 11 :47 AM EDT documented as of this encounter Miscellaneous Notes * Telephone Encounter - Selma Reich - 02/16/2025 9:24 AM EDT Lm on to confirm appt for 02/17 documented in this encounter Plan of Treatment Not on file documented as of this encounter Visit Diagnoses Not on filedocumented in this encounter Additional Health Concerns Assessment Noted Time PHQ-9 Depression Total Score: 4 12/15/19 25 3:09 PM EDT A Body Mass Index follow-up plan has been documented for the patient 12/14/2024 4:16 PM EDT documented as of this encounter Care Teams Business Mail Entry Clerk Relationship Specialty Start Date End Date Adithya Pedro MD [address] [place] [id number] PCP - General Family Medicine 11/16/24 documented as of this encounter
--- OUTSIDE RECORDS SUMMARY | 2025-03-22 10:53 | XMS_ITS | Clinical Summary ---
Author Organization [facility] Address [address] [place] [address] Care Team Providers Care Associate Professor Of Psychology Name Role Phone Adithya Pedro MD Primary Care Provider [phone] Allergies No known active allergies Medications QUEtiapine (SEROquel) 50 MG tablet Take 1 tablet by mouth nightly. 30 tablet 1 12/14/2024 Active cariprazine (Vraylar) 3 MG capsule Take 1 capsule by mouth daily. 30 capsule 2 12/14/2024 Active omeprazole (PriLOSEC) [address] capsule Take 1 capsule by mouth daily. Do not crush or chew. 30 capsule 5 12/14/2024 Active hydrOXYzine pamoate (Vistaril) 25 MG capsule Take 1 capsule by mouth every 6 hours as needed for anxiety. 90 capsule 2 12/14/2024 Active Active Problems No known active problems Encounters Date Type Department Care Team Description 02/16/2025 Telephone Obstetrics & Gynecology [address] [place] [address] Xiao Gresham MD 12/29/2024 Telephone Obstetrics & Gynecology [address] [place] [address] Xiao Gresham MD 12/23/2024 Patient Outreach [facility] [address], [address] [place] [address] Noemi Ozuna Follow-up from Last 3 Months Immunizations Immunization Administration Dates Next Due DTaP, Unspecified 03/28/2002, 9,08/31/1998,04/13/1998,0 1997 Hep B, Adolescent or Pediatric 1997 HiB, unspecified 04/13/1998,1997 Hib (PRP-OMP) 04/19/1999 Hib / Hep B 08/31/1998 IPV 03/28/2002,1997 MMR 03/28/2002,10/31/1998 OPV 10/31/1998,04/13/1998 Tdap 06/22/2020,10/17/2009 Varicella 10/31/1998 Family History Medical History Relation Name Comments Asthma Brother Asthma Father No Known Problems Maternal Grandfather Heart disease Maternal Grandmother Anemia Mother Heart disease Mother No Known Problems Paternal Grandfather No Known Problems Paternal Grandmother No Known Problems Sister 1 No Known Problems Sister 2 Relation Name Status Comments Brother Alive Father Alive Maternal Grandfather Maternal Grandmother Mother Alive Other Paternal Grandfather Paternal Grandmother Sister 1 Alive Sister 2 Alive Social History Tobacco Use Types Packs/Day Years Used Date Smoking Tobacco: Former Cigarettes 0.5 6 2 014 - 2019 Passive Smoke Exposure: Never Smokeless Tobacco: Never Tobacco Cessation:Counseling Given: Not Answered Alcohol Use Standard Drinks/Week Comments Yes 12 [...] any time in the past 12 m [facility], were you homeless or living in a [facility] (including now)? Yes 11/16/2024 Utilities Answer Date [...] Orientation Straight 04/01/2024 11 :47 AM EDT Last Filed Vital Signs Vital Sign Reading Time Taken Comments Blood Pressure 104/70 12/14/2024 3:03 PM EDT Pulse 86 12/14/2024 3:03 PM EDT Temperature 36.9 C (98.4 F) 12/14/2024 3:03 PM EDT Respiratory Rate 18 12/14/2024 3:03 PM EDT Oxygen Saturation 98% 12/14/2024 3:03 PM EDT Inhaled Oxygen Concentration - - Weight 55.4 kg (122 lb 2.2 oz) 12/14/2024 3:03 P M EDT Height 162.6 cm (5' 4 ) 12/14/2024 3:03 PM EDT Body Mass Index 20.96 12/14/2024 3:03 PM EDT Plan of Treatment Health Maintenance Due Date Last Done Comments [facility]-Infant/Child/Adol SDOH Screenings 1997 [facility]-Hepatitis B Vaccines (3 of 3 - 3-dose series) 10/26/1998 08/31/1998, 1997 [facility]-Varicella Vaccines (2 of 2 - 2-dose childhood series) 04/25/2002 10/31/1998 [facility]-Pap Smear 2018 [id number] Vaccine (1 - season) 2024 HPV Vaccines (1 - 3-dose SCDM series) 2024 [facility]-Influenza Vaccine (#1) 2025 [facility]- SDOH Screenings 05/18/2025 [facility]-Adult SDOH Screenings 05/18/2025 11/16/2024 [facility]-Depression Screening 12/14/2025 12/14/2024, 12/01 [facility]-DTaP,Tdap,and Td Vaccines (8 - Td or Tdap) 06/22/2030 06/22/2020, 10/17/2009, 03/28/2002, Additional history exists [facility]-Zoster Vaccines (1 of 2) 10/09/2047 10/31/1998 [facility]-HIB Vaccines Completed 04/19/1999, , 04/13/1998, Additional history exists [facility]-IPV Vaccines Completed 03/28/2002, , 04/13/1998, Additional history exists [facility]-HIV Screening Completed 06/19/2021, 03/05/2020 [facility]-Hepatitis C Screening Completed 2020, 06/19/2021, 03/05/2020, Additional history exists [facility]-Hepatitis A Vaccines Aged Out No longer eligible based on patient's age to complete this topic [facility]-Pneumococcal Vaccine: Pediatrics (0 to 5 Years) and At-Risk Patients (6 to 49 Years) Aged Out No longer eligible based on patient's age to complete this topic [facility]-Rotavirus Vaccines Aged Out No lo nger eligible based on patient's age to complete this topic Procedures Procedure Name Priority Date/Time Associated Diagnosis Comments HEPATITIS C ANTIBODY W/REFLEX TO HCV QUANT PCR Routine 06/19/2021 4:35 PM EST STD exposure HIV 1/2 ANTIBODY/ANTIGEN SCREEN WITH REFLEX TO HIV I/II DIFFERENTIATION Routine 06/19/2021 4:35 PM EST STD exposure from Last 3 Months or Most Recently Relevant to Health Maintenance Results * HIV 1 & 2 Antibody/Antigen Screen (06/19/2021 4:35 PM EST) HIV 1 & 2 Antibody/Anti gen Screen Nonreactive Nonreactive 06/19/2021 8:05 PM EST [facility] Blood Venous blood specimen / Unknown Venipuncture / Unknown 06/19/2021 4:35 PM EST 06/19/2021 6:37 PM EST Keara Montanez APRN, CNM LAB BLOOD ORDERABLE S Final Result Performing Organization Address [facility] Co de Phone Number [facility] [address] [place] [address] * (ABNORMAL) Hepatitis C Antibody (06/19/2021 4:35 PM EST) Pathologist [facility] Hepatitis C Antibody Positive( A) Negative 06/19/2021 8:04 PM EST [facility] Comment:This specimen is jeffery ng sent for confirmation by RT-PCR. Blood Venous blood specimen / Unknown Venipuncture / Unknown 06/19/2021 4:35 PM EST 06/19/2021 6:37 PM EST Keara Montanez APRN, CNM LAB BLOOD ORDERABLE S Final Result Performing Organization Address [facility] Co de Phone Number [facility] [address] [place] [address] from Last 3 Months or Most Recently Relevant to Health Maintenance Insurance MEDICAID [place] Care Teams Associate Professor Of Psychology Relationship Specialty Start Date End Date Adithya Pedro MD [address] [place] [address] PCP - General Family Medicine 11/16/24
[2025-03-22 13:11] LABS: Hepatitis C Ab Qual. W/ RFX NEGATIVE (Negative)
[2025-03-23 06:13] LABS: Hepatitis B Surface Antigen Negative (Negative)
[2025-03-23 08:30] LABS: RPR W/RFX Titers Nonreactive (Nonreactive)
[2025-03-26 16:31] LABS: HSV-1 DNA Negative (Negative); HSV-2 DNA Negative (Negative)
== END 2025-03-22 23:59 | disposition home or self-care (01) ==
LOC: LAB 10:42
PROVIDERS: PCP Family Medicine; Visit Provider Obstetrics & Gynecology
DX: N89.8 Other specified noninflammatory disorders of vagina (principal); Z20.2 Contact with and (suspected) exposure to infections with a predominantly sexual mode of transmission
CPT/HCPCS: 36415; 86592; 86803; 87340; 87389; 87491; 87529; 87591; 87661; 87798; 87801